=== PATIENT | male | born 1950 | race Caucasian/White ===

== ENCOUNTER → 2018-01-31 11:20 | Outpatient (CLI) | payer MEDICARE, OTHER, SELFPAY ==
[2018-01-31 12:40] LABS: Add Manual Diff / Slide Review NO; Basophils Percent Auto 0.6 % (0-2); Eosinophils Percent Auto 1.1 % (2-4); Hematocrit 38.4 % (41-53); Hemoglobin 13.5 g/dL (13.5-17.5); Lymphocytes Percent Auto 15.5 % (25-40); Mean Corpuscular HGB Conc 35.2 % (30-36); Mean Corpuscular Hemoglobin 32.8 PG (26-34); Mean Corpuscular Volume 93.3 fL (80-100); Monocytes Percent Auto 9.2 % (3-14); Neutrophils Absolute Auto 5100 /uL (3000-5900); Neutrophils Percent Auto 73.6 % (50-75); Platelet Count 208 X10^3/uL (150-400); Red Blood Cell Count 4.11 X10^6/uL (4.5-5.9); Red Cell Distribution Width 13.9 % (11.6-14.8)
[2018-01-31 13:06] LABS: BUN Creatinine Ratio 21.1 (6-22); Blood Urea Nitrogen 19 mg/dL (9-20); Calcium 9.2 mg/dL (8.4-10.2); Carbon Dioxide 28 mmol/L (22-32); Chloride 99 mmol/L (98-107); Estimated Glomerular Filt Rate > 60.0 mL/min (>60); Glucose 103 mg/dL (80-110); HEMOLYSIS < 15 (0-50); Potassium 4.6 mmol/L (3.4-5.1); Sodium 137 mmol/L (137-145)
== END ==
PROVIDERS: PCP Student in an Organized Health Care Education/Training Program; Visit Provider Orthopaedic Surgery Orthopaedic Surgery of the Spine
DX: Z01.812 Encounter for preprocedural laboratory examination (principal); Z01.818 Encounter for other preprocedural examination
CPT/HCPCS: 36415; 80048; 85025; 93005

== ENCOUNTER 2018-02-18 06:40 | Inpatient (IN) | payer MEDICARE, OTHER, SELFPAY ==
[2018-01-30 09:59] VITALS: BMI 24.3
[2018-02-18] VITALS (24 sets, daily range): BP systolic 78–155; BP diastolic 45–83; PULSE 54–90; RESP 6–20; TEMP 36.3–37.4; O2SAT 94–100; BMI 23.7
--- NOTE | 2018-02-18 | DI.RAD.S_ITS ---
PROCEDURE: XR LUMBAR SPINE 2-3V INDICATIONS: L5-S1, L3-4 TLIF TECHNIQUE: 2 views of the lumbar spine were acquired. COMPARISON: [facility], CAPRI, XR LUMBAR SPINE WITH OLBIQUES PLUS FLEXION EXTENSION, 11/22/2017, 7:42. FINDINGS: Bones: AP and lateral intraoperative images by comparison again show disc spacer at the L4-5 level with new spacers at L3-4 and L5-S1. Extension of posterior fixation with bilateral transpedicular screws and vertical fixation rods L3-S1. Soft tissues: Overlying bowel gas pattern is normal. No suspicious soft tissue calcifications. IMPRESSION: Intraoperative verification of postoperative changes L3-4 and L5-S1 posterior discectomy and internal fixation. Dictated by: Elie Temple M.D. on 02/18/2018 at 12:58 Approved by: Elie Temple M.D. on 02/18/2018 at 13:01
[2018-02-18] MEDS: LACTATED RINGERS 1,000 ML 42 ML IV ×2 (07:45→10:11)
[2018-02-18] MEDS: CEFAZOLIN 2 GM/100 ML FROZ.PIGGY IV ×2 (08:06→16:43)
--- NOTE | 2018-02-18 08:51 | SUR.OPER ---
Prone on spine table, head in foam head support, padded chest and pelvic supports, gel pad at knees, lower legs supported by pillows; nipples, genitalia and toes free of pressure, arms secured on foam padded arm boards at <90 degrees abduction. Tape over blanket at thigh secured to table.
[2018-02-18] MEDS: BUPIVACAINE 0.25% W/ EPI VIAL 50 ML INJ (09:18)
[2018-02-18] MEDS: BUPIVACAINE LIPOSOME 266 MG/20 ML VIAL INJ (11:24)
--- NOTE | 2018-02-18 12:34 | PM.OP.1 ---
Operative Date/Time/Diagnoses Date of procedure: 02/18/18 Time of procedure: 08:34 Pre-op diagnosis: 1. L4-5 hx of fusion with pseudoarthrosis 2. L3-4,L4-5, L5-S1 spinal stenosis 3. L3-4, L5-S1 spondylosis with radiculopathy Post-op diagnosis: same Procedure & Clinicians Procedure: 1. L3-4, L5-S1 posterolateral and posterior interbody fusion 2. L3-4, L5-S1 posterior interbody cage placement 3. L4-5 posterior non-segmental instrumentation removal 4. L4-5 revision laminectomy with exploration of fusion 5. L3-4, L4-5, L5-S1 posterior segmental instrumentation with pedicle screw placement 6. L4-5 posterolatearl fusion 7. [place] of bone marrow from iliac crest through a separate incision 8. Utilization of microsurgical technique and operating microscope Same procedure as scheduled: Yes Indications: Patient has been having chronic back pain and worsening lumbar radiculopathy. Patient had a history of lumbar fusion with progressively worsening back pain and leg pain. Patient's imaging showed pseudarthrosis at L4-5 level with L3-4 L5-S1 spinal stenosis along with L4-5 epidural scarring. Patient failed multiple conservative management with worsening pain weakness and numbness in her lower extremity. Patient has been having difficulty performing activity of daily living. After discussing risks benefits of treatment options, patient elected proceed with surgery. Surgeon: Zeny Gorman Enrollment Representative: Val Reagan Click Yes if Unassisted: No Anesthesia Type: General Operative Notes Closure Type: primary Specimen(s): none sent Implants & Drains: Globus Revolve screw, Rise cages Applied: catheter Estimated Blood Loss (mL): 200 Blood products transfused: none Procedure in detail: Patient was seen in the preoperative area. Risks and benefits of the surgery was discussed with the patient. Informed consent was obtained from the patient and placed in the chart. Surgical site was marked. Patient was taken to the operative room. General anesthesia was administered. Prophylactic antibiotic was given to the patient less than 30 min before the incision was made. Patient was placed into a prone position on the Yo table. Patient's back was then prepped and draped in the sterile fashion. Time-out was performed at this time. Using AP and lateral C-arm imaging, a right-sided incision was made over the L3-S1 interval. Fascia was incised in line with skin incision. Patient's previously placed hardware over the L4-5 level was identified by dissecting down to the level the hardware using a Bovie and a Fuller. The locking caps which was removed using globus screwdriver. The locking joanna was then removed from the [place] of the pedicle screws using a Chung. The pedicle screws were then removed using the screwdriver. The screws were found to have good purchase. The Globus and MARS retractors was then placed into the wound and docked onto the L3, L4 and L5 lamina using C-arm guidance. Using microsurgical technique and operating microscope a laminectomy facetectomy was performed by removing the L3 and L5 lamina and the L3-4 L5-S1 facet. The disc space at L3-4 and L5-S1 level was identified next. And a total diskectomy was performed at L3-4 L5-S1 level. The endplates were decorticated using a rasp and shaver. The total diskectomy and decortication was performed at L3-4 L5-S1 level in order to to accomplish a L3-4 L5-S1 posterior interbody fusion. During the L5-S1 laminectomy, a 2 mm dural defect was created using a Kerrison rongeur from the epidural adhesion from previous surgery. A Tisseel biological glue as well as DuraGen was placed on top of the dural defect. After the placement of DuraGen and the Tisseel there is no visible CSF leakage. Due to the location and also the small size of the dural tear no repair was performed. The local bone from the laminectomy and facetectomy was saved for local bone grafting. After the total diskectomy and decortication was completed, Globus viacell bone graft material was combined with local bone that was harvested earlier. At this time, a separate skin is incision was made over the iliac crest. A Jamshidi needle was inserted into the iliac crest through a separate skin incision. 5 cc of bone marrow aspiration was obtained through the separate skin incision using a Jamshidi needle from the iliac crest. The bone marrow aspiration was combined with local bone and the via cell bone grafting material. The bone grafting material was placed into the L3-4-L5-S1 interbody space along with a expandable cage. The cage was expanded to its maximum height using the torque limiting screwdriver. At this time a mirror image incision was made on the left side. The fascia was incised in line with the skin incision. Patient's previously placed hardware on the left side was then removed in the same fashion as it was on the right side. The hardware was also found to have good purchase. The fusion mass on the left side was exposed by performing a left-sided hemilaminectomy at L4-5 level. The hemilaminectomy was performed using the Kerrison rongeur to undercut the lamina as well removing additional epidural scar tissue for purpose of decompressing the epidural space. The fusion mass was explored and was found have visible motion indicating pseudoarthrosis. Globus MARS retractor was inserted and docked onto the L3-4 L4-5 L5-S1 posterolateral gutter. Using the power drill, posterior-lateral decortication was performed at L3-4 L4-5 L5-S1 level until bleeding cortical bone was identified. The remaining bone grafting material was placed into the L3-4 L4-5 L5-S1 posterior lateral gutter he order to accomplish posterolateral fusion at the L3-4-L4-5 L5-S1 level. Using the double C-arm technique, pedicle screws were placed into the L3, L4 L5 and S1 pedicles bilaterally. This was done by placing the Jamshidi needle into the pedicles, then placing the guidewires over the Jamshidi needle, and finally placing the cannulated screws over the guidewires bilaterally. After the pedicle screws were placed, 2 titanium rods was locked into the heads of the pedicle screws using locking caps and torque limiting screwdriver. After all the hardware was placed, and confirmed with AP and lateral C-arm imaging, the wound was then irrigated with sterile normal saline and packed with Ray-Familia gauze for 3 min to accomplish hemostasis. After the gauze was removed the deep fascia was closed with #1 Vicryl suture. The subcutaneous layer was closed with 2-0 Vicryl. The skin was closed with skin tana. Patient tolerated the procedure well. There were no complications. Complications: none Condition: stable Disposition: PACU Plan for aftercare: Admit to inpatient hospital
--- NOTE | 2018-02-18 12:38 | P.OP_ITS ---
Operative Date/Time/Diagnoses Date of procedure: 02/18/18 Time of procedure: 08:34 Pre-op diagnosis: 1. L4-5 hx of fusion with pseudoarthrosis 2. L3-4,L4-5, L5-S1 spinal stenosis 3. L3-4, L5-S1 spondylosis with radiculopathy Post-op diagnosis: same Procedure & Clinicians Procedure: 1. L3-4, L5-S1 posterolateral and posterior interbody fusion 2. L3-4, L5-S1 posterior interbody cage placement 3. L4-5 posterior non-segmental instrumentation removal 4. L4-5 revision laminectomy with exploration of fusion 5. L3-4, L4-5, L5-S1 posterior segmental instrumentation with pedicle screw placement 6. L4-5 posterolatearl fusion 7. [place] of bone marrow from iliac crest through a separate incision 8. Utilization of microsurgical technique and operating microscope Same procedure as scheduled: Yes Indications: Patient has been having chronic back pain and worsening lumbar radiculopathy. Patient had a history of lumbar fusion with progressively worsening back pain and leg pain. Patient's imaging showed pseudarthrosis at L4-5 level with L3-4 L5 -S1 spinal stenosis along with L4-5 epidural scarring. Patient failed multiple conservative management with worsening pain weakness and numbness in her lower extremity. Patient has been having difficulty performing activity of daily living. After discussing risks benefits of treatment options, patient elected proceed with surgery. Surgeon: Zeny Gorman Compliance Lead: Val Reagan Click Yes if Unassisted: No Anesthesia Type: General Operative Notes Closure Type: primary Specimen(s): none sent Implants & Drains: Globus Revolve screw, Rise cages Applied: catheter Estimated Blood Loss (mL): 200 Blood products transfused: none Procedure in detail: Patient was seen in the preoperative area. Risks and benefits of the surgery was discussed with the patient. Informed consent was obtained from the patient and placed in the chart. Surgical site was marked. Patient was taken to the operative room. General anesthesia was administered. Prophylactic antibiotic was given to the patient less than 30 min before the incision was made. Patient was placed into a prone position on the Yo table. Patient's back was then prepped and draped in the sterile fashion. Time- out was performed at this time. Using AP and lateral C-arm imaging, a right-sided incision was made over the L3- S1 interval. Fascia was incised in line with skin incision. Patient's previously placed hardware over the L4-5 level was identified by dissecting down to the level the hardware using a Bovie and a Fuller. The locking caps which was removed using globus screwdriver. The locking joanna was then removed from the [place] of the pedicle screws using a Chung. The pedicle screws were then removed using the screwdriver. The screws were found to have good purchase. The Globus and MARS retractors was then placed into the wound and docked onto the L3, L4 and L5 lamina using C-arm guidance. Using microsurgical technique and operating microscope a laminectomy facetectomy was performed by removing the L3 and L5 lamina and the L3-4 L5-S1 facet. The disc space at L3-4 and L5- S1 level was identified next. And a total diskectomy was performed at L3-4 L5- S1 level. The endplates were decorticated using a rasp and shaver. The total diskectomy and decortication was performed at L3-4 L5-S1 level in order to to accomplish a L3-4 L5-S1 posterior interbody fusion. During the L5-S1 laminectomy, a 2 mm dural defect was created using a Kerrison rongeur from the epidural adhesion from previous surgery. A Tisseel biological glue as well as DuraGen was placed on top of the dural defect. After the placement of DuraGen and the Tisseel there is no visible CSF leakage. Due to the location and also the small size of the dural tear no repair was performed. The local bone from the laminectomy and facetectomy was saved for local bone grafting. After the total diskectomy and decortication was completed, Globus viacell bone graft material was combined with local bone that was harvested earlier. At this time , a separate skin is incision was made over the iliac crest. A Jamshidi needle was inserted into the iliac crest through a separate skin incision. 5 cc of bone marrow aspiration was obtained through the separate skin incision using a Jamshidi needle from the iliac crest. The bone marrow aspiration was combined with local bone and the via cell bone grafting material. The bone grafting material was placed into the L3-4-L5-S1 interbody space along with a expandable cage. The cage was expanded to its maximum height using the torque limiting screwdriver. At this time a mirror image incision was made on the left side. The fascia was incised in line with the skin incision. Patient's previously placed hardware on the left side was then removed in the same fashion as it was on the right side. The hardware was also found to have good purchase. The fusion mass on the left side was exposed by performing a left-sided hemilaminectomy at L4-5 level. The hemilaminectomy was performed using the Kerrison rongeur to undercut the lamina as well removing additional epidural scar tissue for purpose of decompressing the epidural space. The fusion mass was explored and was found have visible motion indicating pseudoarthrosis. Globus MARS retractor was inserted and docked onto the L3-4 L4-5 L5-S1 posterolateral gutter. Using the power drill, posterior-lateral decortication was performed at L3-4 L4-5 L5-S1 level until bleeding cortical bone was identified. The remaining bone grafting material was placed into the L3-4 L4-5 L5-S1 posterior lateral gutter he order to accomplish posterolateral fusion at the L3-4-L4-5 L5-S1 level. Using the double C-arm technique, pedicle screws were placed into the L3, L4 L5 and S1 pedicles bilaterally. This was done by placing the Jamshidi needle into the pedicles, then placing the guidewires over the Jamshidi needle, and finally placing the cannulated screws over the guidewires bilaterally. After the pedicle screws were placed, 2 titanium rods was locked into the heads of the pedicle screws using locking caps and torque limiting screwdriver. After all the hardware was placed, and confirmed with AP and lateral C-arm imaging, the wound was then irrigated with sterile normal saline and packed with Ray-Familia gauze for 3 min to accomplish hemostasis. After the gauze was removed the deep fascia was closed with #1 Vicryl suture. The subcutaneous layer was closed with 2-0 Vicryl. The skin was closed with skin tana. Patient tolerated the procedure well. There were no complications. Complications: none Condition: stable Disposition: PACU Plan for aftercare: Admit to inpatient hospital
[2018-02-18] MEDS: HYDROMORPHONE 2 MG INJ 0.5 MG IV ×4 (12:56→13:13)
[2018-02-18] MEDS: LORazepam 2 MG/ML SYRINGE 0.25 MG IV ×2 (13:07→13:18)
--- NOTE | 2018-02-18 15:01 | SUR.PHASEI ---
late entry: pt arrived to pacu with oral airway and needing chin support to breath, bp low, iv opened and infusing well, HOB lowered, bp gradually came up , pt awoke, airway out, iv rate slowed 02 weaned off. pt medicated with dilaudid and lorazepam, pain started at 10/10 and was at 4/10 when left the pacu. report to teagan kim.
[2018-02-18] MEDS: KETOROLAC 0.5% OPHTH DROPS 5 ML 1 DROPS EYE-BOTH (15:02)
[2018-02-18] MEDS: SODIUM CHLORIDE 0.9% 1,000 ML 100 ML IV (15:02)
[2018-02-18] MEDS: prednisoLONE OPHTH SUSP 1 DROPS EYE-BOTH (15:03)
[2018-02-18] MEDS: OXYCODONE IR 5 MG TABLET 10 MG PO ×2 (15:04→18:33)
[2018-02-18] MEDS: HYDROMORPHONE 1 MG INJ 0.5 MG IV (15:05)
[2018-02-18] MEDS: ACETAMINOPHEN 325 MG TABLET 650 MG PO (15:05)
--- NOTE | 2018-02-18 15:49 | PC.NURSE ---
Post-op: Late entry Arrived awake and alert at 1350. Logrolled to observe dressing which was C/D/I. Denies any new paresthesias. Reported old numbness/tingling in all extremities, neuropathy to BLE's and foot drop in L foot. On 2L O2 with sats in the mid 90's. Rated back pain 7/10. Medicated per e-sep. Tolerating PO's without N/V. Patient's family reported to this quality analyst/technical writer, when they arrived to visit patient, that Dr Gorman had told them there was a dural tear and that patient was to lay flat. So, we laid patient flat and I called back down to surgery since I had not received that info in report. HEAD OF VISUAL MERCHANDISING Daniel called into surgery and called back to say patient should lay flat until 7 pm tonight. Patient denies headache. [place] to gravity, urine clear yellow. IVF per order, site in L hand WNL. Oriented to room and call light. Given water and snacks. Encouraged to make needs known. Alarm active.
[2018-02-18] MEDS: hydrOXYzine pamoate 25 MG CAPSULE PO ×2 (16:43→20:54)
[2018-02-18] MEDS: HYDROMORPHONE 0.5 MG INJ IV ×3 (17:20→22:00)
[2018-02-18] MEDS: SENNOSIDES 8.6 MG TABLET 17.2 MG PO (20:43)
[2018-02-18] MEDS: DOCUSATE 100 MG CAPSULE PO (20:45)
[2018-02-18] MEDS: TRAZODONE 50 MG TABLET PO (20:45)
--- NOTE | 2018-02-18 21:20 | PC.NURSE ---
shift note met with pt at start of shift. aox3. pleasant, cooperative. complains of pain 8/10 difficulty managing pain. MD called, additional PRN pain meds ordered. Currently pt rates pain 6/10. call light within reach.
[2018-02-18] MEDS: OXYCODONE IR 5 MG TABLET 15 MG PO (21:57)
[2018-02-19] VITALS (8 sets, daily range): BP systolic 106–145; BP diastolic 60–87; PULSE 65–78; RESP 16–19; TEMP 36.7–37.8; O2SAT 94–98
[2018-02-19] MEDS: CEFAZOLIN 2 GM/100 ML FROZ.PIGGY IV (00:14)
[2018-02-19] MEDS: HYDROMORPHONE 0.5 MG INJ IV ×4 (00:17→22:31)
[2018-02-19] MEDS: SODIUM CHLORIDE 0.9% 1,000 ML 100 ML IV (00:25)
--- NOTE | 2018-02-19 00:41 | PC.NURSE ---
Addendum entered by Zahra Cornell R.N. 02/19/18 05:27: Slept for few hours and then at 0410 requested pain medication for complaint of 6/10 pain. Shortly after stated he needed additional pain medication so discussed that po pain medication takes at least 30 minutes to start taking effect. Applied heat to back and instructed to call if pain not improved. When checked at 0500 patient was sleeping. Now again asking for additional pain meds; requested/medicated with Vistaril but knows Dilaudid is also available should Vistaril be ineffective. Original Note: Addendum entered by Zahra Cornell R.N. 02/19/18 02:36: Having spasms in right calf relieved by warm blankets, but now states pain is still 7/10; medicated with Dilaudid, repositioned onto left side and ice pack applied. Has footie SCD's in place. Tried off oxygen per patient request but oximeter alarming and patient down to 85% so placed back on oxygen at 1L/min per NC Original Note: Addendum entered by Zahra Cornell R.N. 02/19/18 01:12: Medicated with Oxycodone + Vistaril for continued 8/10 pain. Original Note: Patient is alert and oriented. Breath sounds coarse but CTA with sat of 99% on 1L/min oxygen per NC; O2 removed and will reassess; continuous pulse oximeter on. HRR. Denies nausea. BT present and is passing flatus. Indwelling catheter is present with urine clear yellow. Having 8/10 back/right hip-leg pain and 4/10 left leg pain; medicated with Dilaudid but declines offer of ice pack. Is able to turn self but preferring to lie on back. Dressing to back is CDI. Has scabbed abrasions on right hand and lower leg. Chronic bilateral foot neuropathy. Flat in bed until 0700 due to dural tear. Fall risk score is high and bed alarm is activated.
[2018-02-19] MEDS: OXYCODONE IR 5 MG TABLET 15 MG PO ×7 (01:11→21:36)
[2018-02-19] MEDS: hydrOXYzine pamoate 25 MG CAPSULE PO ×4 (01:11→18:41)
[2018-02-19 06:59] LABS: Hematocrit 33.7 % (41-53); Hemoglobin 11.4 g/dL (13.5-17.5)
[2018-02-19] MEDS: DEXAMETHASONE 10 MG/ML VIAL IV (09:17)
[2018-02-19] MEDS: DOCUSATE 100 MG CAPSULE PO ×2 (09:17→18:06)
[2018-02-19] MEDS: ATENOLOL 50 MG TABLET PO (09:17)
[2018-02-19] MEDS: GABAPENTIN 300 MG CAPSULE PO (09:17)
[2018-02-19] MEDS: prednisoLONE OPHTH SUSP 1 DROPS EYE-BOTH (09:18)
[2018-02-19] MEDS: KETOROLAC 0.5% OPHTH DROPS 5 ML 1 DROPS EYE-BOTH (09:18)
--- NOTE | 2018-02-19 11:00 | PT.IIE ---
Current Diagnoses Foot drop, right foot (02/18/18) Other spondylosis with radiculopathy, lumbar region (02/18/18) Spinal stenosis, lumbar region without neurogenic claudication (02/18/18) Arthrodesis status (02/18/18) Surgery Performed Operation Date: 02/18/18 07:45 Actual Procedures p L4-5 HWR, Exploration of Fusion, L3-4, L5-S1 TLIF w/L3-4,L4-5,L5-S1 PSF w/Instru. - Zeny Gorman MD Surgical History (Last Updated 01/30/18 @ 10:22 by Hazel Somers RN) History of ankle surgery (Acute) History of ankle surgery (Acute) History of bilateral cataract extraction (Acute) History of lumbar spinal fusion (Acute) History of meniscectomy of left knee (Acute) History of vasectomy (Acute) S/P left rotator cuff repair (Acute) Medical History (Last Updated 01/30/18 @ 10:22 by Hazel Somers RN) HTN (hypertension) (Acute) Hx of migraines (Acute) Irregular heart beats (Acute) Kidney stone (Acute) Melanoma in situ of cheek (Acute) Numbness (Acute) Pre-diabetes (Acute) Physical Therapy Inpatient Evaluation/Re-Eval M1 PT/OT-IP Prior Functional Status Start: 02/19/18 12:23 Freq: NEEDED Status: Active Protocol: Document 02/19/18 11:00 AB (Rec: 02/19/18 12:40 AB [id number]) Medical Review Prior Functional Status Medical History Reviewed Yes Communication able to make needs known Mobility and Gait pt stated that he is independent with all mobilities and ambulation without AD Prior Functional Level (Other details) 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 2 steps with L rail ascending + 8 ft sloped walk wasy + 4 steps with bilateral rails to enter the house; has 8 steps with L rail ascending to get to 2nd floor; pt plans to stay on main level of the house. Home Environment Standard Height Toilet Walk in Shower Tub/Shower Home Equipment Four Wheel Walker Straight Cane Grab Bars Near Toilet Additional Social History Comment pt has a tub shower on main level of the house without shower chair, with grab bar; stated spouse can get him a shower chair; has a walk in shower with built in shower hair without grab bars in 2nd level of the house. has a high bed on 2nd level of the house M2 PT-IP Current Condition Start: 02/19/18 12:23 Freq: NEEDED Status: Active Protocol: Document 02/19/18 11:00 AB (Rec: 02/19/18 12:40 AB [id number]) Physical Therapy Current Condition Current Condition Evaluation Date 02/19/18 Treatment Diagnosis s/p L3-4, L5 S1 TLIF; difficulty in walking Onset Date 02/18/18 Precautions Lumbar Precautions Log Roll No Twisting Limit Bending Lifting Restriction of 10 lbs Gait Belt above Incisional Area Brace L AFO M3 PT-IP Subjective Start: 02/19/18 12:23 Freq: NEEDED Status: Active Protocol: Document 02/19/18 11:00 AB (Rec: 02/19/18 12:40 AB [id number]) Subjective Physical Therapy Visit Type Type Initial Evaluation Visit Start Time 11:00 Visit Stop Time 11:44 Total Visit Minutes 44 Notes PA order: pt bed rest until 7 am of 02/19/18 then 2 hours at 30 deg with HOB elevated and another 2 hours with HOB at 45 deg. spoke with nurse and initially stated to check back at around 1 pm today. after a few minutes, nurse informed PT that pt is cleared to get up and out of bed with PT per Dr. Espinoza. Number of PHOTOVOLTAIC SOLAR CELL DESIGNER Visits 0 Physical Therapy Visit Comments Patient Comments pt agreeable to do therapy Therapy Pain Assessment Pain When Pain Assessed At Rest Pain Present Pain Present Pain Reported Location Back Intensity 5 Scale Used Numeric (1 - 10) Pain Management Techniques Apply Cold Re-positioning Timing of Activity with Medications M4 PT-IP Mobility and Gait Start: 02/19/18 12:23 Freq: NEEDED Status: Active Protocol: Document 02/19/18 11:00 AB (Rec: 02/19/18 12:40 AB [id number]) PT-Bed Mobility Assessment Rolling Type of Rolling Log Rolling Level of Assist Minimal Assistance Supine to Sit Supine to Sit Minimal Assistance 1 Person Assistance PT-Transfer Assessment Sit to and From Stand Sit to and from Stand Moderate Assistance 1 Person Assistance Use of Upper Extremities Equipment Transfer Assistive Device Gait Belt Front Wheeled Walker Orthotic/Prosthetic Devices or Brace: Yes Transfers Transfer Destination Chair Transfer Technique pt ambulated to the the chair using FWW Transfer Ability Level of Assist Minimal Assistance Moderate Assistance 1 Person Assistance Use of Upper Extremities Gait Assessment Gait Gait Assistance Required: Minimum Assistance Distance (Feet) (feet) 30 Able to Maintain Weight Bearing Status Yes During Gait Assistive Devices Assistive Device Gait Belt Front Wheeled Walker Orthotic/Prosthetic Devices or Brace: Yes Gait Deviations General Gait Pattern Decreased Stride Length Decreased Feet Clearance Factors Limiting Gait Function Factors Limiting Gait Function Decreased Activity Tolerance Decreased Sensation Decreased Strength Limited Range of Motion Pain Poor Balance Poor Safety Awareness PT-Balance Assessment Sitting Balance and Reactions Static Sitting Balance Ability Good Dynamic Sitting Balance Ability Good Standing Balance and Reactions Static Standing Balance Ability Fair Dynamic Standing Balance Ability Fair M5 PT-IP Objective Assessments Start: 02/19/18 12:23 Freq: NEEDED Status: Active Protocol: Document 02/19/18 11:00 AB (Rec: 02/19/18 12:40 AB [id number]) Orientation Orientation/Cognition Level of Alertness Alert Orientation Name Age Birthday Month Date Year Day of Week Place Situation Gross Range of Motion Lower Extremity ROM Assessment Within Functional Limits Strength Lower Extremity Strength Assessment Bilaterally Impaired Hip 4-/5 Knee 3+/5 Comments Strength Comments RLE weaker than LLE Sensation Assessment Sensation Gross Sensation Right LE Impaired Left LE Impaired Sensation Description Numbness Comments Sensation Comments B feet numbness M6 PT-IP Treatment Start: 02/19/18 12:23 Freq: NEEDED Status: Active Protocol: Document 02/19/18 11:00 AB (Rec: 02/19/18 12:40 AB [id number]) Physical Therapy Treatment Education Education Provided Precautions Post-Op Packet Safety M7 PT-IP Assessment and Plan Start: 02/19/18 12:23 Freq: NEEDED Status: Active Protocol: Document 02/19/18 11:00 AB (Rec: 02/19/18 12:40 AB [id number]) PT Summary Assessment and Plan Potential Rehabilitation Potential Good Status of Condition at Evaluation Evolving Summary Impairments Pain ROM Strength Balance Coordination Sensation Bed Mobility Transfers Gait Activity Tolerance Assessment Summary pt requiring one person assist with mobility. d/c plan depending on progress and if spouse will be able to assist pt safely. Goals Bed Mobility Goal Standby Assistance Transfer Goal Standby Assistance Front Wheeled Walker Four Wheeled Walker Gait Goal Standby Assistance Front Wheel Walker Four Wheel Walker Gait Distance 150 Other Goals up/down 8 steps with L rail ascending; 4 steps with bilateral rails SBA Days to Meet Goals 3 Frequency of Treatment Frequency Of Treatment Twice a Day Treatment Plan Physical Therapy Treatment Plan Bed Mobility Training Transfer Training Gait Training Therapeutic Exercise Balance Retraining Post Op Education Discharge Planning Hot or Cold Pack Neuromuscular Re-ed Coordination Retraining Manual Therapy Recommendations To Nursing Amount of Assist Needed 1 Person Assist Discharge Recommendations PT Discharge Recommendations Home with Assistance Equipment Needed for Home Before FWW if not safe with 4WW Discharge
[2018-02-19] MEDS: DEXAMETHASONE 4 MG TABLET PO ×2 (12:32→18:06)
--- NOTE | 2018-02-19 12:45 | PT.IPTN ---
Current Diagnoses Foot drop, right foot (02/18/18) Other spondylosis with radiculopathy, lumbar region (02/18/18) Spinal stenosis, lumbar region without neurogenic claudication (02/18/18) Arthrodesis status (02/18/18) Surgery Performed Operation Date: 02/18/18 07:45 Actual Procedures p L4-5 HWR, Exploration of Fusion, L3-4, L5-S1 TLIF w/L3-4,L4-5,L5-S1 PSF w/Instru. - Zeny Gorman MD Physical Therapy Treatment Note M2 PT-IP Current Condition Start: 02/19/18 12:23 Freq: NEEDED Status: Active Protocol: Document 02/19/18 11:00 AB (Rec: 02/19/18 12:40 AB [id number]) Physical Therapy Current Condition Current Condition Evaluation Date 02/19/18 Treatment Diagnosis s/p L3-4, L5 S1 TLIF; difficulty in walking Onset Date 02/18/18 Precautions Lumbar Precautions Log Roll No Twisting Limit Bending Lifting Restriction of 10 lbs Gait Belt above Incisional Area Brace L AFO M3 PT-IP Subjective Start: 02/19/18 12:23 Freq: NEEDED Status: Active Protocol: Document 02/19/18 12:45 AB (Rec: 02/19/18 15:04 AB [id number]) Subjective Physical Therapy Visit Type Type Treatment Note Visit Start Time 12:45 Visit Stop Time 13:03 Total Visit Minutes 18 Number of PRODUCTION SERVICE MANAGER Visits 0 Physical Therapy Visit Comments Patient Comments pt requested to go back to bed but agreeable to do ambulation first Therapy Pain Assessment Pain When Pain Assessed At Rest Pain Present Pain Present Pain Reported Location Back Intensity 4 Scale Used Numeric (1 - 10) Pain Management Techniques Apply Cold Re-positioning M4 PT-IP Mobility and Gait Start: 02/19/18 12:23 Freq: NEEDED Status: Active Protocol: Document 02/19/18 12:45 AB (Rec: 02/19/18 15:04 AB [id number]) PT-Bed Mobility Assessment Rolling Type of Rolling Log Rolling Level of Assist Contact Guard Assistance Sit to Supine Sit to Supine Minimal Assistance PT-Transfer Assessment Sit to and From Stand Sit to and from Stand Contact Guard Assistance Minimal Assistance 1 Person Assistance Use of Upper Extremities Equipment Transfer Assistive Device Gait Belt Front Wheeled Walker Orthotic/Prosthetic Devices or Brace: Yes Transfers Transfer Destination Bed Transfer Technique pt ambulated to the bed using FWW Transfer Ability Level of Assist Contact Guard Assistance Minimal Assistance Comments Mobility Comments pt completed sit <>stand x 3 and CGA to min A and cues for techniques and safety Gait Assessment Gait Gait Assistance Required: Contact Guard Assist Minimum Assistance Distance (Feet) (feet) 50 Able to Maintain Weight Bearing Status Yes During Gait Assistive Devices Assistive Device Gait Belt Front Wheeled Walker Orthotic/Prosthetic Devices or Brace: Yes Gait Deviations General Gait Pattern Decreased Stride Length Decreased Feet Clearance Factors Limiting Gait Function Factors Limiting Gait Function Decreased Activity Tolerance Decreased Sensation Decreased Strength Pain Poor Balance M5 PT-IP Objective Assessments Start: 02/19/18 12:23 Freq: NEEDED Status: Active Protocol: Document 02/19/18 11:00 AB (Rec: 02/19/18 12:40 AB [id number]) Orientation Orientation/Cognition Level of Alertness Alert Orientation Name Age Birthday Month Date Year Day of Week Place Situation Gross Range of Motion Lower Extremity ROM Assessment Within Functional Limits Strength Lower Extremity Strength Assessment Bilaterally Impaired Hip 4-/5 Knee 3+/5 Comments Strength Comments RLE weaker than LLE Sensation Assessment Sensation Gross Sensation Right LE Impaired Left LE Impaired Sensation Description Numbness Comments Sensation Comments B feet numbness M6 PT-IP Treatment Start: 02/19/18 12:23 Freq: NEEDED Status: Active Protocol: Document 02/19/18 12:45 AB (Rec: 02/19/18 15:04 AB [id number]) Physical Therapy Treatment Education Education Provided Precautions Safety M7 PT-IP Assessment and Plan Start: 02/19/18 12:23 Freq: NEEDED Status: Active Protocol: Document 02/19/18 12:45 AB (Rec: 02/19/18 15:04 AB [id number]) PT Summary Assessment and Plan Potential Rehabilitation Potential Good Summary Impairments Pain ROM Strength Balance Sensation Bed Mobility Transfers Gait Activity Tolerance Progress Towards Goals Slow Progress due to Pain Slow Progress due to Activity Tolerance Assessment Summary pt requiring one person assist with mobility. pt plans to go home with spouse to assist him. caregiver training will be conducted when appropriate. Goals Bed Mobility Goal Standby Assistance Transfer Goal Standby Assistance Front Wheeled Walker Four Wheeled Walker Gait Goal Standby Assistance Front Wheel Walker Four Wheel Walker Gait Distance 150 Other Goals up/down 8 steps with L rail ascending; 4 steps with bilateral rails SBA Days to Meet Goals 3 Frequency of Treatment Frequency Of Treatment Twice a Day Treatment Plan Physical Therapy Treatment Plan Bed Mobility Training Transfer Training Gait Training Therapeutic Exercise Balance Retraining Post Op Education Discharge Planning Hot or Cold Pack Neuromuscular Re-ed Coordination Retraining Manual Therapy Recommendations To Nursing Amount of Assist Needed 1 Person Assist Discharge Recommendations PT Discharge Recommendations Home with Assistance Equipment Needed for Home Before FWW if not safe with 4WW Discharge
--- NOTE | 2018-02-19 12:48 | OT.IP.EVAL ---
Current Diagnoses Foot drop, right foot (02/18/18) Other spondylosis with radiculopathy, lumbar region (02/18/18) Spinal stenosis, lumbar region without neurogenic claudication (02/18/18) Arthrodesis status (02/18/18) Surgery Performed Operation Date: 02/18/18 07:45 Actual Procedures p L4-5 HWR, Exploration of Fusion, L3-4, L5-S1 TLIF w/L3-4,L4-5,L5-S1 PSF w/Instru. - Zeny Gorman MD Past Medical History (Last Updated 01/30/18 @ 10:22 by Hazel Somers RN) HTN (hypertension) (Acute) Hx of migraines (Acute) Irregular heart beats (Acute) Kidney stone (Acute) Melanoma in situ of cheek (Acute) Numbness (Acute) Pre-diabetes (Acute) Surgical History (Last Updated 01/30/18 @ 10:22 by Hazel Somers RN) History of ankle surgery (Acute) History of ankle surgery (Acute) History of bilateral cataract extraction (Acute) History of lumbar spinal fusion (Acute) History of meniscectomy of left knee (Acute) History of vasectomy (Acute) S/P left rotator cuff repair (Acute) Occupational Therapy Inpatient Evaluation/Re-Eval M1 PT/OT-IP Prior Functional Status Start: 02/19/18 12:23 Freq: NEEDED Status: Active Protocol: Document 02/19/18 11:00 AB (Rec: 02/19/18 12:40 AB [id number]) Medical Review Prior Functional Status Medical History Reviewed Yes Communication able to make needs known Mobility and Gait pt stated that he is independent with all mobilities and ambulation without AD Prior Functional Level (Other details) 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 2 steps with L rail ascending + 8 ft sloped walk wasy + 4 steps with bilateral rails to enter the house; has 8 steps with L rail ascending to get to 2nd floor; pt plans to stay on main level of the house. Home Environment Standard Height Toilet Walk in Shower Tub/Shower Home Equipment Four Wheel Walker Straight Cane Grab Bars Near Toilet Additional Social History Comment pt has a tub shower on main level of the house without shower chair, with grab bar; stated spouse can get him a shower chair; has a walk in shower with built in shower hair without grab bars in 2nd level of the house. has a high bed on 2nd level of the house M1 PT/OT-IP Prior Functional Status Start: 02/19/18 12:29 Freq: NEEDED Status: Active Protocol: Document 02/19/18 12:29 [facility] (Rec: 02/19/18 12:48 [facility] [id number]) Medical Review Prior Functional Status Medical History Reviewed Yes Communication Independent. Mobility and Gait Per pt needed to wear left foot brace on his shoe otherwise does not use a device. Activities of Daily Living and IADL's Independent. Social History Household Members spouse Living Arrangements House Number of Floors (Floors) Two Floors Number of Stairs To Enter/Railing? 2 steps with left rail and then landing and then another 4 steps with bilateral rails. Home Environment Standard Height Toilet Walk in Shower Tub/Shower Built-In Shower Seat Home Equipment Four Wheel Walker Straight Cane Grab Bars Near Toilet Employment Status Wharf Hand Employed Additional Social History Comment Pt's to be home to assist . M2 OT-IP Current Condition Start: 02/19/18 12:29 Freq: Status: Active Protocol: Document 02/19/18 12:29 [facility] (Rec: 02/19/18 12:48 [facility] [id number]) Occupational Therapy Current Condition Current Condition Evaluation Date 02/19/18 Treatment Diagnosis Lumbar stenosis Diagnosis Onset Date 02/18/18 Post Operative Precautions Lumbar Precautions Log Roll No Twisting Limit Bending Lifting Restriction of 10 lbs Gait Belt above Incisional Area Weight Bearing Status Weight Bearing Status Weight Bear as Tolerated M3 OT- IP Subjective and Pain Start: 02/19/18 12:29 Freq: Status: Active Protocol: Document 02/19/18 12:29 [facility] (Rec: 02/19/18 12:48 [facility] [id number]) OT- Subjective Occupational Therapy Visit Type Type Initial Evaluation Visit Start Time 11:20 Visit Stop Time 11:50 Occupational Therapy Visit Comments Patient/Caregiver Goals Pt states if needed would hire help at home, otherwise to assist at home. OT Pain Assessment Pain When Pain Assessed At Rest Pain Present Pain Present Pain Reported Location Back Intensity 7 Scale Used Numeric (1 - 10) M4 OT- IP ADL's Start: 02/19/18 12:29 Freq: Status: Active Protocol: Document 02/19/18 12:29 [facility] (Rec: 02/19/18 12:48 [facility] [id number]) OT ADL-Grooming General Evaluation Grooming Ability Standby Assistance Comments OT Grooming Comments Set-up while in bed. OT ADL-Dressing General Eval Lower Body Dressing Ability Maximum Assistance Areas Needing Assistance Socks Shoes Orthosis/Prosthesis Comments OT Dressing Comments Educated pt on use of shank taper and socks aid for LB dressing needs. Pt's to be able to assist for shoes and foot brace. OT ADL-Toileting Comments OT Toileting Comments Pt has catheter in. M6 OT- IP Functional Cognition Start: 02/19/18 12:29 Freq: Status: Active Protocol: Document 02/19/18 12:29 [facility] (Rec: 02/19/18 12:48 [facility] [id number]) Cognitive Factors Limiting Selfcare Function Cognitive Ability Level of Alertness Alert Patient Orientation Name Place Situation Attention Span Ability Capable of Focused Attention Capable of Sustained Attention Ability to Follow Commands Able to Follow Multi-Step Commands Memory Description Short Term Impaired Safety Awareness Decreased Recall of Precautions Cognitive Comments Cognitive Assessment Comments Pt needing reminders for back precautions at this time. OT- Vision and Hearing OT- Hearing Assessment OT- Hearing Assessment WFL M7 OT- IP Mobility and Balance Start: 02/19/18 12:29 Freq: Status: Active Protocol: Document 02/19/18 12:29 [facility] (Rec: 02/19/18 12:48 [facility] [id number]) OT- Bed Mobility Assessment Rolling Type of Rolling Log Rolling Supine to Sit Supine to Sit Assist Minimal Assistance OT-Transfer Assessment Sit to and From Stand Sit to and from Stand Moderate Assistance Transfers Transfer Ability Minimal Assistance Technique Transfer Destination Chair Devices Transfer Assistive Devices Gait Belt Front Wheeled Walker Orthotic/Prosthetic Devices or Brace: Yes Comments Mobility Comments Heavy use of BUE on the FWW while walking. OT- Balance Assessment Sitting Balance and Reactions Static Sitting Balance Ability Normal Dynamic Sitting Balance Ability Good M8 OT- IP Objective Assessments Start: 02/19/18 12:29 Freq: Status: Active Protocol: Document 02/19/18 12:29 [facility] (Rec: 02/19/18 12:48 [facility] [id number]) OT Gross Range of Motion Upper Extremity Range of Motion Assessment Within Functional Limits OT Strength Upper Extremity Strength Assessment Within Functional Limits Hand Security Alarm Technician Strength Hand Dominance Right Comments Strength Comments Right manager career stronger than left M9 OT- IP Assessment and Plan Start: 02/19/18 12:29 Freq: Status: Active Protocol: Document 02/19/18 12:29 [facility] (Rec: 02/19/18 12:48 [facility] [id number]) OT Summary Assessment and Plan Potential Rehabilitation Potential Excellent Analytic Complexity at Evaluation Low Summary OT Impairments Pain Balance Functional Cognition Functional Mobility Dressing Toileting Bathing Toilet Transfers Shower Transfers Progress Towards Goals Slow Progress due to Pain Slow Progress due to Cognition Assessment Summary Pt Low complexity and main barrier is pain, steps at home , and now needing extensive assist for LB dressing at this time. Pt to go home when medically stable and to assist. Goals Grooming Goal Independent Dressing Goal Minimal Assistance Toileting Goal Independent Bathing Goal Minimal Assistance Toilet Transfer Goal Standby Assistance Shower Transfer Goal Contact Guard Assistance Patient/Caregiver Education Goal Demonstrate Post-Op Precautions Caregiver Independent Assisting Patient Days to Meet Goals 3 Frequency of Treatment Frequency Of Treatment Once a Day Treatment Plan OT Treatment Plan ADL Training Functional Cognition Training Functional Mobility Patient/Family Education Discharge Planning Discharge Recommendations OT Discharge Recommendations Home with Assistance Home Equipment Needs Shower chair, FWW
--- NOTE | 2018-02-19 13:46 | CM.DANOTE ---
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 Yes Advance Directives on File No History Provided By Patient Family Member Medical Record Has Patient been admitted in last 30 No days? Prior Living Arrangements House Household Members spouse Type of transporation used prior to Drives own vehicle admit Independent with ADL's Yes Is patient alert and oriented? Yes Patient/Family Preference OP PT Therapy Discharge Plan Home Whiteboard Updated in Patient Room with Yes name and ext. # of Wire Mesh Filter Fabricator Review Status In Process Next Review Type Continued Stay Review Met with patient and spouse: notified family of CM team role and family understood. Family reports patient being independent at baseline and working part-time. Spouse will provide transportation home. No concerns or needs. Plan: Patient to discharge home with supportive family and OP PT.
[2018-02-19] MEDS: KETOROLAC 0.5% 1 EACH EYE-BOTH ×2 (15:22→21:24)
[2018-02-19] MEDS: PREDNISOLONE 1% 1 EACH EYE-BOTH ×2 (15:22→21:24)
--- NOTE | 2018-02-19 15:28 | P.PN_ITS ---
Subjective Date Patient Seen: 02/19/18 Time Patient Seen: 07:19 Interval history: POD #1 status post lumbar fusion with Dr. Gorman. Patient had a dura tear during surgery, and the head of his bed has been flat since surgery. He does not complain of any headaches now that his head is at 30?. His pain has been well controlled. He does complain of pain down right buttocks. He has not been up and ambulating with physical therapy yet. He has a Novak in place. He plans to discharge home with his family. Exam Vital Signs (past 8 hours): - 02/19/18 08:54 02/19/18 10:38 02/19/18 13:37 Temperature 98.5 F 98.2 F Pulse Rate 76 65 Respiratory Rate 18 16 Blood Pressure 145/87 H 106/60 Pulse Oximetry 98 94 96 Oxygen Delivery Method Room Air Oxygen Flow Rate 0.5 Narrative Exam Narrative: Patient lying in bed in no acute distress. He is alert and oriented x3. Calves are soft, compressible, nontender bilaterally. He is able to actively dorsiflex plantar flex. Sensation intact to light touch throughout bilateral lower extremities. Objective Labs Result Diagrams: 02/19/18 06:25 Labs: Laboratory Results - last 24 hr 02/19/18 06:25 Hgb 11.4 L Hct 33.7 L Assessment & Plan Post-op Postoperative Procedures Operation Date: 02/18/18 07:45 Actual Procedures Side Surgeon p L4-5 HWR, Exploration of Fusion, L3-4, L5-S1 TLIF w/L3-4,L4-5,L5-S1 PSF w/ Instru. Zeny Gorman MD POD #1 status post lumbar fusion with Dr. Gorman. Continue current pain control. Patient can ambulate later this morning with physical therapy. No excessive bending, lifting, or twisting. He was started on Decadron for 24 hr burst. Plan to discharge home in next 1-2 days. Time Spent With Patient less than 15 minutes
[2018-02-19] MEDS: SENNOSIDES 8.6 MG TABLET 17.2 MG PO (18:06)
[2018-02-19] MEDS: GABAPENTIN 300 MG CAPSULE 900 MG PO (21:24)
[2018-02-19] MEDS: TRAZODONE 50 MG TABLET PO (21:24)
[2018-02-20] VITALS (7 sets, daily range): BP systolic 104–142; BP diastolic 62–87; PULSE 61–92; RESP 16–20; TEMP 36.6–37.3; O2SAT 94–98
[2018-02-20] MEDS: OXYCODONE IR 5 MG TABLET 15 MG PO ×6 (00:29→19:59)
[2018-02-20] MEDS: DEXAMETHASONE 4 MG TABLET PO ×2 (00:29→06:30)
--- NOTE | 2018-02-20 04:21 | PC.NURSE ---
Addendum entered by Sosa Shin R.N. 02/20/18 06:47: Novak output for night was approx 2000mls. Novak catheter D/C'd at 0635. Original Note: Rodent Control Worker-Pt rated pain to lower back 3-5/10. Oxycodone 15mg prn given at 0030 & 0410. Pt was able to sleep for just over 3hrs straight. States much better pain control tonight. Needs reminders to not cross BLE, even when pillow placed between legs. Repositions self in bed indep from side to side with pillow support. CMS+, No BLE edema noted, PPP, SCDs to bilateral feet encouraged and placed back on at beginning of shift. Novak insitu draining clear yellow urine qs amount. Plan to remove at 0630, pt agreeable. Incisional dressing exposing distal tana. Dressing removed and cleansed with normal saline. Dry 4X4 gauze and Telfa dressing with border applied. Pt tolerated well.
--- NOTE | 2018-02-20 07:34 | PM.PNPO.1 ---
Subjective Date Patient Seen: 02/20/18 Time Patient Seen: 07:34 Interval history: Patient is status post lumbar fusion by Dr. Gorman. Postop day 2. States he is feeling better today. Has been up with physical therapy and walked down the [place]. Has not done stairs yet. Still having difficulty getting in and out of bed. History of left footdrop which seems to be getting better post operatively. Pain manageable with current pain medications. Exam Vital Signs (past 8 hours): - 02/19/18 23:51 02/20/18 00:20 02/20/18 06:00 Temperature 99.7 F H 98.0 F Pulse Rate 65 72 Respiratory Rate 16 16 Blood Pressure 118/63 123/77 H Pulse Oximetry 94 94 96 Oxygen Delivery Method Room Air Oxygen Flow Rate 0 Narrative Exam Narrative: Patient in bed. Appears comfortable. Alert and orient x3. Vac dressing clean dry and intact. 5/5 bilateral ankle strength. Numbness in bilateral feet up to willams area. Good distal pulses. Bilateral calves soft and nontender. Objective Labs Result Diagrams: 02/19/18 06:25 Assessment & Plan Post-op Postoperative Procedures Operation Date: 02/18/18 07:45 Actual Procedures Side Surgeon p L4-5 HWR, Exploration of Fusion, L3-4, L5-S1 TLIF w/L3-4,L4-5,L5-S1 PSF w/Instru. Zeny Gorman MD postop day 2. Continue physical therapy. Continue pain management. Currently on a steroid burst for pain. Patient to continue wearing footdrop brace. Plan for discharge home tomorrow. Time Spent With Patient less than 15 minutes
--- NOTE | 2018-02-20 07:37 | P.PN_ITS ---
Subjective Date Patient Seen: 02/20/18 Time Patient Seen: 07:34 Interval history: Patient is status post lumbar fusion by Dr. Gorman. Postop day 2. States he is feeling better today. Has been up with physical therapy and walked down the [place]. Has not done stairs yet. Still having difficulty getting in and out of bed. History of left footdrop which seems to be getting better post operatively. Pain manageable with current pain medications. Exam Vital Signs (past 8 hours): - 02/19/18 23:51 02/20/18 00:20 02/20/18 06:00 Temperature 99.7 F H 98.0 F Pulse Rate 65 72 Respiratory Rate 16 16 Blood Pressure 118/63 123/77 H Pulse Oximetry 94 94 96 Oxygen Delivery Method Room Air Oxygen Flow Rate 0 Narrative Exam Narrative: Patient in bed. Appears comfortable. Alert and orient x3. Vac dressing clean dry and intact. 5/5 bilateral ankle strength. Numbness in bilateral feet up to willams area. Good distal pulses. Bilateral calves soft and nontender. Objective Labs Result Diagrams: 02/19/18 06:25 Assessment & Plan Post-op Postoperative Procedures Operation Date: 02/18/18 07:45 Actual Procedures Side Surgeon p L4-5 HWR, Exploration of Fusion, L3-4, L5-S1 TLIF w/L3-4,L4-5,L5-S1 PSF w/ Instru. Zeny Gorman MD postop day 2. Continue physical therapy. Continue pain management. Currently on a steroid burst for pain. Patient to continue wearing footdrop brace. Plan for discharge home tomorrow. Time Spent With Patient less than 15 minutes
[2018-02-20] MEDS: ATENOLOL 50 MG TABLET PO (09:03)
[2018-02-20] MEDS: DOCUSATE 100 MG CAPSULE PO ×2 (09:03→20:01)
[2018-02-20] MEDS: KETOROLAC 0.5% 1 EACH EYE-BOTH ×3 (09:03→20:01)
[2018-02-20] MEDS: PREDNISOLONE 1% 1 EACH EYE-BOTH ×3 (09:03→20:01)
[2018-02-20] MEDS: GABAPENTIN 300 MG CAPSULE PO (09:03)
[2018-02-20] MEDS: SODIUM CHLORIDE 0.9% FLUSH 10 ML IV ×2 (09:04→20:01)
--- NOTE | 2018-02-20 10:13 | OT.IP.TRT ---
Current Diagnoses Foot drop, right foot (02/18/18) Other spondylosis with radiculopathy, lumbar region (02/18/18) Spinal stenosis, lumbar region without neurogenic claudication (02/18/18) Arthrodesis status (02/18/18) Surgery Performed Operation Date: 02/18/18 07:45 Actual Procedures p L4-5 HWR, Exploration of Fusion, L3-4, L5-S1 TLIF w/L3-4,L4-5,L5-S1 PSF w/Instru. - Zeny Gorman MD Occupational Therapy Treatment Note M2 OT-IP Current Condition Start: 02/19/18 12:29 Freq: Status: Active Protocol: Document 02/19/18 12:29 [facility] (Rec: 02/19/18 12:48 [facility] [email or web address]) Occupational Therapy Current Condition Current Condition Evaluation Date 02/19/18 Treatment Diagnosis Lumbar stenosis Diagnosis Onset Date 02/18/18 Post Operative Precautions Lumbar Precautions Log Roll No Twisting Limit Bending Lifting Restriction of 10 lbs Gait Belt above Incisional Area Weight Bearing Status Weight Bearing Status Weight Bear as Tolerated M3 OT- IP Subjective and Pain Start: 02/19/18 12:29 Freq: Status: Active Protocol: Document 02/20/18 09:59 [facility] (Rec: 02/20/18 10:13 [facility] [email or web address]) OT- Subjective Occupational Therapy Visit Type Type Treatment Note Visit Start Time 09:08 Visit Stop Time 09:48 Total Visit Minutes 40 Occupational Therapy Visit Comments Patient Comments Pt requesting to go to the bathroom. OT Pain Assessment Pain When Pain Assessed During Mobility Pain Present Pain Present Pain Reported Location Back Intensity 3 Scale Used Numeric (1 - 10) M4 OT- IP ADL's Start: 02/19/18 12:29 Freq: Status: Active Protocol: Document 02/20/18 09:59 [facility] (Rec: 02/20/18 10:13 [facility] [email or web address]) OT ADL-Grooming General Evaluation Grooming Ability Standby Assistance Contact Guard Assistance Comments OT Grooming Comments Able to stand, unsteady while not holding onto FWW or counter and needing occasional CGA for balance. OT ADL-Oral Care General Eval Oral Care Ability Standby Assistance Areas of Assistance Retrieving/Set-Up of Items OT ADL-Dressing General Eval Lower Body Dressing Ability Maximum Assistance Areas Needing Assistance Socks Shoes Orthosis/Prosthesis OT ADL-Toileting General Evaluation Toileting Ability Standby Assistance Comments OT Toileting Comments VC to use FWW over the toilet as still unsteady on his feet. M6 OT- IP Functional Cognition Start: 02/19/18 12:29 Freq: Status: Active Protocol: Document 02/20/18 09:59 [facility] (Rec: 02/20/18 10:13 [facility] [email or web address]) Cognitive Factors Limiting Selfcare Function Cognitive Ability Level of Alertness Alert Patient Orientation Name Place Situation Attention Span Ability Capable of Focused Attention Capable of Sustained Attention Ability to Follow Commands Able to Follow Multi-Step Commands Memory Description No Deficits Noted Safety Awareness Decreased Ability to Apply Precautions Underestimates Need for Assistance Cognitive Comments Cognitive Assessment Comments Pt able to recall back precautions however still needing clues to incorporate precautions during functional mobility and ADL's. M7 OT- IP Mobility and Balance Start: 02/19/18 12:29 Freq: Status: Active Protocol: Document 02/20/18 09:59 [facility] (Rec: 02/20/18 10:13 [facility] [email or web address]) OT- Bed Mobility Assessment Rolling Type of Rolling Log Rolling Supine to Sit Supine to Sit Assist Standby Assistance Bedrails OT-Transfer Assessment Sit to and From Stand Sit to and from Stand Standby Assistance Transfers Transfer Ability Standby Assistance Technique Transfer Destination Chair Devices Transfer Assistive Devices Gait Belt Front Wheeled Walker Orthotic/Prosthetic Devices or Brace: Yes Comments Mobility Comments VC to use BUE to push up from the bed, vc to straighten legs first as pt tends to hesitate and try to reach FWW before straightening legs. OT- Balance Assessment Standing Balance and Reactions Static Standing Balance Ability Fair Dynamic Standing Balance Ability Poor M8 OT- IP Objective Assessments Start: 02/19/18 12:29 Freq: Status: Active Protocol: Document 02/19/18 12:29 [facility] (Rec: 02/19/18 12:48 [facility] [email or web address]) OT Gross Range of Motion Upper Extremity Range of Motion Assessment Within Functional Limits OT Strength Upper Extremity Strength Assessment Within Functional Limits Hand Stave And Bolt Equalizer Strength Hand Dominance Right Comments Strength Comments Right medication assistant stronger than left M9 OT- IP Assessment and Plan Start: 02/19/18 12:29 Freq: Status: Active Protocol: Document 02/20/18 09:59 [facility] (Rec: 02/20/18 10:13 [facility] [email or web address]) OT Summary Assessment and Plan Goals Days to Meet Goals 2 Frequency of Treatment Frequency Of Treatment Once a Day Treatment Plan OT Treatment Plan ADL Training Functional Cognition Training Functional Mobility Patient/Family Education Discharge Planning Other Treatment Recommendations and Next Shower,caregiver training Treatment Focus Discharge Recommendations OT Discharge Recommendations Home with Assistance Home Equipment Needs Shower chair, FWW
--- NOTE | 2018-02-20 10:18 | PT.IPTN ---
Current Diagnoses Foot drop, right foot (02/18/18) Other spondylosis with radiculopathy, lumbar region (02/18/18) Spinal stenosis, lumbar region without neurogenic claudication (02/18/18) Arthrodesis status (02/18/18) Surgery Performed Operation Date: 02/18/18 07:45 Actual Procedures p L4-5 HWR, Exploration of Fusion, L3-4, L5-S1 TLIF w/L3-4,L4-5,L5-S1 PSF w/Instru. - Zeny Gorman MD Physical Therapy Treatment Note M2 PT-IP Current Condition Start: 02/19/18 12:23 Freq: NEEDED Status: Active Protocol: Document 02/19/18 11:00 AB (Rec: 02/19/18 12:40 AB [id number]) Physical Therapy Current Condition Current Condition Evaluation Date 02/19/18 Treatment Diagnosis s/p L3-4, L5 S1 TLIF; difficulty in walking Onset Date 02/18/18 Precautions Lumbar Precautions Log Roll No Twisting Limit Bending Lifting Restriction of 10 lbs Gait Belt above Incisional Area Brace L AFO M3 PT-IP Subjective Start: 02/19/18 12:23 Freq: NEEDED Status: Active Protocol: Document 02/20/18 10:18 AB (Rec: 02/20/18 11:46 AB [email or web address]) Subjective Physical Therapy Visit Type Type Treatment Note Visit Start Time 10:18 Visit Stop Time 10:41 Total Visit Minutes 23 Number of JEWEL SUPERVISOR Visits 0 Physical Therapy Visit Comments Patient Comments pt agreeable to do therapy Therapy Pain Assessment Pain When Pain Assessed At Rest Pain Present Pain Present Pain Reported Location Back Intensity 3 Scale Used Numeric (1 - 10) Pain Management Techniques Re-positioning Timing of Activity with Medications M4 PT-IP Mobility and Gait Start: 02/19/18 12:23 Freq: NEEDED Status: Active Protocol: Document 02/20/18 10:18 AB (Rec: 02/20/18 11:46 AB [email or web address]) PT-Transfer Assessment Sit to and From Stand Sit to and from Stand Contact Guard Assistance Equipment Transfer Assistive Device Gait Belt Front Wheeled Walker Orthotic/Prosthetic Devices or Brace: Yes Comments Mobility Comments pt has L AFO Gait Assessment Gait Gait Assistance Required: Standby Assistance 1 Person Assist Distance (Feet) (feet) 250 Able to Maintain Weight Bearing Status Yes During Gait Assistive Devices Assistive Device Gait Belt Front Wheeled Walker 4 Wheeled Walker Orthotic/Prosthetic Devices or Brace: Yes Gait Deviations General Gait Pattern Decreased Stride Length Decreased Feet Clearance Factors Limiting Gait Function Factors Limiting Gait Function Decreased Activity Tolerance Decreased Sensation Decreased Strength Pain Poor Balance Comments Gait Comments pt ambulated 250 ft x 2 using FWW on first ambulation and then a 4WW on 2nd ambulation requiring SBA to occasional CGA and cues for safety. Stair Climbing Assessment Evaluation Level of Assist On Stairs Standby Assistance Contact Guard Assistance Devices Stair Climbing Assistive Devices Left Railing Right Railing Technique/Endurance Stair Climbing Direction Ascend and Descend Stair Climbing Technique Step Over Step Number of Steps Climbed 3 Query Text: Stair Climbing Set # Repetitions (reps) 2 M5 PT-IP Objective Assessments Start: 02/19/18 12:23 Freq: NEEDED Status: Active Protocol: Document 02/19/18 11:00 AB (Rec: 02/19/18 12:40 AB [id number]) Orientation Orientation/Cognition Level of Alertness Alert Orientation Name Age Birthday Month Date Year Day of Week Place Situation Gross Range of Motion Lower Extremity ROM Assessment Within Functional Limits Strength Lower Extremity Strength Assessment Bilaterally Impaired Hip 4-/5 Knee 3+/5 Comments Strength Comments RLE weaker than LLE Sensation Assessment Sensation Gross Sensation Right LE Impaired Left LE Impaired Sensation Description Numbness Comments Sensation Comments B feet numbness M6 PT-IP Treatment Start: 02/19/18 12:23 Freq: NEEDED Status: Active Protocol: Document 02/20/18 10:18 AB (Rec: 02/20/18 11:46 AB [email or web address]) Physical Therapy Treatment Education Education Provided Precautions Post-Op Packet Safety M7 PT-IP Assessment and Plan Start: 02/19/18 12:23 Freq: NEEDED Status: Active Protocol: Document 02/20/18 10:18 AB (Rec: 02/20/18 11:46 AB [email or web address]) PT Summary Assessment and Plan Potential Rehabilitation Potential Good Summary Impairments Pain ROM Strength Balance Sensation Bed Mobility Transfers Gait Activity Tolerance Progress Towards Goals Progressing Toward Goals Assessment Summary pt progressing well with mobility. Assessed safety with use of 4WW and pt was able to ambulate requiring SBA to CGA and cues. Pt may go home with spouse to assist him . Goals Bed Mobility Goal Standby Assistance Transfer Goal Standby Assistance Four Wheeled Walker Gait Goal Standby Assistance Four Wheel Walker Gait Distance 150 Other Goals up/down 8 steps with L rail ascending; 4 steps with bilateral rails SBA Days to Meet Goals 3 Frequency of Treatment Frequency Of Treatment Twice a Day Treatment Plan Physical Therapy Treatment Plan Bed Mobility Training Transfer Training Gait Training Therapeutic Exercise Balance Retraining Post Op Education Discharge Planning Hot or Cold Pack Neuromuscular Re-ed Coordination Retraining Manual Therapy Recommendations To Nursing Amount of Assist Needed 1 Person Assist Discharge Recommendations PT Discharge Recommendations Home with Assistance
[2018-02-20] MEDS: hydrOXYzine pamoate 25 MG CAPSULE PO (12:21)
--- NOTE | 2018-02-20 14:30 | PT.IPTN ---
Current Diagnoses Foot drop, right foot (02/18/18) Other spondylosis with radiculopathy, lumbar region (02/18/18) Spinal stenosis, lumbar region without neurogenic claudication (02/18/18) Arthrodesis status (02/18/18) Surgery Performed Operation Date: 02/18/18 07:45 Actual Procedures p L4-5 HWR, Exploration of Fusion, L3-4, L5-S1 TLIF w/L3-4,L4-5,L5-S1 PSF w/Instru. - Zeny Gorman MD Physical Therapy Treatment Note M2 PT-IP Current Condition Start: 02/19/18 12:23 Freq: NEEDED Status: Active Protocol: Document 02/19/18 11:00 AB (Rec: 02/19/18 12:40 AB [id number]) Physical Therapy Current Condition Current Condition Evaluation Date 02/19/18 Treatment Diagnosis s/p L3-4, L5 S1 TLIF; difficulty in walking Onset Date 02/18/18 Precautions Lumbar Precautions Log Roll No Twisting Limit Bending Lifting Restriction of 10 lbs Gait Belt above Incisional Area Brace L AFO M3 PT-IP Subjective Start: 02/19/18 12:23 Freq: NEEDED Status: Active Protocol: Document 02/20/18 14:30 AB (Rec: 02/20/18 15:28 AB [email or web address]) Subjective Physical Therapy Visit Type Type Treatment Note Visit Start Time 14:30 Visit Stop Time 14:40 Total Visit Minutes 10 Number of ENVIRONMENTAL SERVICES SPECIALIST Visits 10 Physical Therapy Visit Comments Patient Comments pt agreeable to do ambulation Therapy Pain Assessment Pain When Pain Assessed At Rest Pain Present Pain Present Pain Reported Location Back Intensity 4 Scale Used Numeric (1 - 10) M4 PT-IP Mobility and Gait Start: 02/19/18 12:23 Freq: NEEDED Status: Active Protocol: Document 02/20/18 14:30 AB (Rec: 02/20/18 15:28 AB [email or web address]) PT-Bed Mobility Assessment Supine to Sit Supine to Sit Standby Assistance Bedrails PT-Transfer Assessment Sit to and From Stand Sit to and from Stand Contact Guard Assistance Use of Upper Extremities Gait Assessment Gait Gait Assistance Required: Contact Guard Assist Distance (Feet) (feet) 200 Able to Maintain Weight Bearing Status Yes During Gait Assistive Devices Assistive Device Gait Belt 4 Wheeled Walker Orthotic/Prosthetic Devices or Brace: Yes Gait Deviations General Gait Pattern Decreased Stride Length Decreased Feet Clearance Factors Limiting Gait Function Factors Limiting Gait Function Decreased Activity Tolerance Decreased Strength Pain Poor Balance Poor Safety Awareness M5 PT-IP Objective Assessments Start: 02/19/18 12:23 Freq: NEEDED Status: Active Protocol: Document 02/19/18 11:00 AB (Rec: 02/19/18 12:40 AB [id number]) Orientation Orientation/Cognition Level of Alertness Alert Orientation Name Age Birthday Month Date Year Day of Week Place Situation Gross Range of Motion Lower Extremity ROM Assessment Within Functional Limits Strength Lower Extremity Strength Assessment Bilaterally Impaired Hip 4-/5 Knee 3+/5 Comments Strength Comments RLE weaker than LLE Sensation Assessment Sensation Gross Sensation Right LE Impaired Left LE Impaired Sensation Description Numbness Comments Sensation Comments B feet numbness M6 PT-IP Treatment Start: 02/19/18 12:23 Freq: NEEDED Status: Active Protocol: Document 02/20/18 14:30 AB (Rec: 02/20/18 15:28 AB [id number]) Physical Therapy Treatment Education Education Provided Precautions Weight Bearing Status Post-Op Packet Safety M7 PT-IP Assessment and Plan Start: 02/19/18 12:23 Freq: NEEDED Status: Active Protocol: Document 02/20/18 14:30 AB (Rec: 02/20/18 15:28 AB [email or web address]) PT Summary Assessment and Plan Potential Rehabilitation Potential Good Summary Impairments Pain ROM Strength Balance Bed Mobility Transfers Gait Activity Tolerance Progress Towards Goals Progressing Toward Goals Assessment Summary pt requiring CGA with ambulation using FWW. pt plans to go home with spouse to assist him at home. Goals Bed Mobility Goal Standby Assistance Transfer Goal Standby Assistance Four Wheeled Walker Gait Goal Standby Assistance Four Wheel Walker Gait Distance 200 Other Goals up/down 8 steps with L rail ascending; 4 steps with bilateral rails SBA Days to Meet Goals 3 Frequency of Treatment Frequency Of Treatment Twice a Day Treatment Plan Physical Therapy Treatment Plan Bed Mobility Training Transfer Training Gait Training Therapeutic Exercise Balance Retraining Post Op Education Discharge Planning Hot or Cold Pack Neuromuscular Re-ed Coordination Retraining Manual Therapy Recommendations To Nursing Amount of Assist Needed 1 Person Assist Discharge Recommendations PT Discharge Recommendations Home with Assistance
[2018-02-20] MEDS: HYDROMORPHONE 0.5 MG INJ IV ×2 (16:58→21:29)
[2018-02-20] MEDS: TRAZODONE 50 MG TABLET PO (20:01)
[2018-02-20] MEDS: SENNOSIDES 8.6 MG TABLET 17.2 MG PO (20:01)
[2018-02-20] MEDS: GABAPENTIN 300 MG CAPSULE 900 MG PO (20:01)
[2018-02-21] MEDS: OXYCODONE IR 5 MG TABLET 15 MG PO ×4 (00:57→11:51)
[2018-02-21] MEDS: hydrOXYzine pamoate 25 MG CAPSULE PO ×2 (00:58→06:29)
--- NOTE | 2018-02-21 01:18 | PC.NURSE ---
Addendum entered by Zahra Cornell R.N. 02/21/18 06:32: Slept at intervals. Voiding in good amounts; 3100cc this shift. States pain is improving but still 4/10 so medicated with Vistaril. Informed he is able to have more Oxycodone at 0710. Original Note: Addendum entered by Zahra Cornell R.N. 02/21/18 04:16: Medicated with Oxycodone for 6/10 back pain radiating to right leg Original Note: Alert and oriented. Breath sounds with scattered inspiratory wheezing but RA sat of 98%; encouraged to CDB and use I.S. when awake. HRR. Denies nausea. BT present and is passing flatus but has not had BM since 02/17. Abdomen is distended and firm. Received prune juice cocktail on previous shift and declines anything additional at this time. Voiding per urinal and denies dysuria, frequency, urgency or incontinence. Is able to turn self in bed. Dressing to back is CDI. Pain is currently 6/10 in back radiating into legs and hamstrings; medicated with Oxycodone + Vistaril and repositioned in bed. Wearing bilateral footie SCD's. Fall risk score is high and bed alarm is activated.
[2018-02-21 05:24] VITALS: BP 133/56; PULSE 66; RESP 16; TEMP 37.3; O2SAT 96
[2018-02-21 07:15] VITALS: BP 114/77; PULSE 74; RESP 16; TEMP 36.7; O2SAT 96
--- NOTE | 2018-02-21 07:31 | PM.DS.1 ---
History of Present Illness Date Patient Seen: 02/21/18 Time Patient Seen: 07:32 Chief complaint: [id number] Narrative: Status post lumbar fusion Discharge Providers Date of admission: 02/18/18 06:40 Primary care physician: Justyna Alexandra MD Consults: 02/18/18 14:03 Consult to Occupational Therapy Evaluate & Treat Comment: Physician Instructions: Evaluate and treat Consult to Physical Therapy Evaluate & Treat Comment: Physician Instructions: Evaluate and Treat Discharge provider: Val Reagan PA-C Summary Discharge Diagnosis: Status post lumbar fusion Gout Diabetes Hospital Course: Sarabjit was admitted for lumbar fusion with Dr. Gorman, and he consented to procedure. Hospital course was unremarkable. On postop day number 3 patient was feeling well and ready to go home with his . He did have increased pain after surgery and was provided with a Medrol steroid burst. His pain has been controlled with oxycodone and Vistaril. He has noticed a significant difference in his left foot drop. He was ambulating with physical therapy. He is aware of his spinal precautions. He was eating and voiding without difficulty or assistance. On day of discharge cover site dressing was applied. Status at Discharge Functional status at discharge: uses cane/walker Exam Vital Signs (past 8 hours): - 02/20/18 23:58 02/21/18 05:24 Temperature 99.2 F 99.2 F Pulse Rate 64 66 Respiratory Rate 18 16 Blood Pressure 142/78 H 133/56 H Pulse Oximetry 98 96 Oxygen Delivery Method Room Air Oxygen Flow Rate 0 Narrative Exam Narrative: Patient lying in bed in no acute distress. He is alert and oriented x3. Cover site dressing applied before discharge. Dorsiflexion and plantar flexion 5/5. Sensation intact to light touch throughout bilateral lower extremities. Calves are soft, compressible, nontender bilaterally. Pulses are symmetrical. His pain is well controlled this morning. He denies any chest pain, or shortness of breath. No difficulty urinating. Discussed with patient he should take Vistaril at night when he goes home. Objective Labs Result Diagrams: 02/19/18 06:25 Discharge Plan Discharge Plan Patient Disposition: Home, Self-Care Discharge comment: DC home today with , coversite dressing before he leaves Discharge Med Rec/Prescriptions Prescriptions: New hydroxyzine pamoate 25 mg Capsule 25 mg PO Q6HR PRN (Reason: muscle spasms) Qty: 40 RF: 1 oxycodone 5 mg capsule 5 mg PO Q4-6H PRN (Reason: pain) Qty: 90 RF: 0 Continue trazodone 50 mg Tablet 50 mg PO BEDTIME RF: 0 ketorolac 0.5 % Drops 1 drp EYE-BOTH TID RF: 0 prednisolone acetate 1 % Drops,Suspension 1 drp EYE-BOTH TID RF: 0 diphenhydramine HCl [Benadryl Allergy] 25 mg Tablet 50 mg PO BEDTIME RF: 0 gabapentin 300 mg Capsule 900 mg PO BEDTIME RF: 0 acetaminophen 500 mg Capsule 500 mg PO BID RF: 0 atenolol 50 mg Tablet 50 mg PO QAM RF: 0 gabapentin 300 mg Capsule 300 mg PO DAILY RF: 0 Discontinued ibuprofen 200 mg Capsule 200 mg PO BID RF: 0 Follow up/Referrals: Zeny Gorman MD [Physician] - (03/01 at [facility]) Provider Discharge Instructions Diet: Regular Activity: No excessive bending, lifting, or twisting Cold/Heat Therapy: As needed Skin/Wound/Dressing Care Report to your healthcare provider any signs of infection, such as:: chills, fever, increased pain and unusual drainage Dressing: Please leave cover site dressing on until follow-up appointment Visit Report/Discharge Packet Instructions: DI for Transforaminal Lumbar Interbody Fusion Discharge Data Primary Care Provider: Justyna Alexandra Attending Provider: Zeny Gorman Admit Date/Time: 02/18/18 06:40
[2018-02-21] MEDS: ATENOLOL 50 MG TABLET PO (08:32)
[2018-02-21] MEDS: KETOROLAC 0.5% 1 EACH EYE-BOTH (08:33)
[2018-02-21] MEDS: GABAPENTIN 300 MG CAPSULE PO (08:33)
[2018-02-21] MEDS: DOCUSATE 100 MG CAPSULE PO (08:33)
[2018-02-21] MEDS: PREDNISOLONE 1% 1 EACH EYE-BOTH (08:33)
[2018-02-21] MEDS: SODIUM CHLORIDE 0.9% FLUSH 10 ML IV (08:34)
--- NOTE | 2018-02-21 09:10 | PT.IPTN ---
Current Diagnoses Foot drop, right foot (02/18/18) Other spondylosis with radiculopathy, lumbar region (02/18/18) Spinal stenosis, lumbar region without neurogenic claudication (02/18/18) Arthrodesis status (02/18/18) Surgery Performed Operation Date: 02/18/18 07:45 Actual Procedures p L4-5 HWR, Exploration of Fusion, L3-4, L5-S1 TLIF w/L3-4,L4-5,L5-S1 PSF w/Instru. - Zeny Gorman MD Physical Therapy Treatment Note M2 PT-IP Current Condition Start: 02/19/18 12:23 Freq: NEEDED Status: Active Protocol: Document 02/19/18 11:00 AB (Rec: 02/19/18 12:40 AB [id number]) Physical Therapy Current Condition Current Condition Evaluation Date 02/19/18 Treatment Diagnosis s/p L3-4, L5 S1 TLIF; difficulty in walking Onset Date 02/18/18 Precautions Lumbar Precautions Log Roll No Twisting Limit Bending Lifting Restriction of 10 lbs Gait Belt above Incisional Area Brace L AFO M3 PT-IP Subjective Start: 02/19/18 12:23 Freq: NEEDED Status: Active Protocol: Document 02/21/18 09:10 AB (Rec: 02/21/18 14:01 AB [email or web address]) Subjective Physical Therapy Visit Type Type Treatment Note Visit Start Time 09:10 Visit Stop Time 09:25 Total Visit Minutes 15 Number of AUTO BODY REPAIR TEACHER Visits 0 Physical Therapy Visit Comments Patient Comments pt agreeable to do therapy Therapy Pain Assessment Pain When Pain Assessed At Rest Pain Present Pain Present Pain Reported Location Back Intensity 3 Scale Used Numeric (1 - 10) M4 PT-IP Mobility and Gait Start: 02/19/18 12:23 Freq: NEEDED Status: Active Protocol: Document 02/21/18 09:10 AB (Rec: 02/21/18 14:01 AB [email or web address]) PT-Transfer Assessment Sit to and From Stand Sit to and from Stand Standby Assistance Equipment Transfer Assistive Device Gait Belt 4 Wheeled Walker Comments Mobility Comments pt requested to use the toilet after ambulation and ambulated the toilet using 4WW sba. Gait Assessment Gait Gait Assistance Required: Standby Assistance Distance (Feet) (feet) 225 Able to Maintain Weight Bearing Status Yes During Gait Assistive Devices Assistive Device Gait Belt 4 Wheeled Walker Orthotic/Prosthetic Devices or Brace: Yes Gait Deviations General Gait Pattern Decreased Stride Length Decreased Feet Clearance Factors Limiting Gait Function Factors Limiting Gait Function Decreased Activity Tolerance Decreased Strength Pain Poor Balance Poor Safety Awareness Stair Climbing Assessment Evaluation Level of Assist On Stairs Contact Guard Assistance Devices Stair Climbing Assistive Devices Left Railing Technique/Endurance Stair Climbing Direction Ascend and Descend Stair Climbing Technique Step Over Step Number of Steps Climbed 3 Query Text: Stair Climbing Set # Repetitions (reps) 1 M5 PT-IP Objective Assessments Start: 02/19/18 12:23 Freq: NEEDED Status: Active Protocol: Document 02/19/18 11:00 AB (Rec: 02/19/18 12:40 AB [id number]) Orientation Orientation/Cognition Level of Alertness Alert Orientation Name Age Birthday Month Date Year Day of Week Place Situation Gross Range of Motion Lower Extremity ROM Assessment Within Functional Limits Strength Lower Extremity Strength Assessment Bilaterally Impaired Hip 4-/5 Knee 3+/5 Comments Strength Comments RLE weaker than LLE Sensation Assessment Sensation Gross Sensation Right LE Impaired Left LE Impaired Sensation Description Numbness Comments Sensation Comments B feet numbness M6 PT-IP Treatment Start: 02/19/18 12:23 Freq: NEEDED Status: Active Protocol: Document 02/21/18 09:10 AB (Rec: 02/21/18 14:01 AB [email or web address]) Physical Therapy Treatment Education Education Provided Precautions Weight Bearing Status Post-Op Packet Safety M7 PT-IP Assessment and Plan Start: 02/19/18 12:23 Freq: NEEDED Status: Active Protocol: Document 02/21/18 09:10 AB (Rec: 02/21/18 14:01 AB [email or web address]) PT Summary Assessment and Plan Potential Rehabilitation Potential Good Summary Impairments Pain ROM Strength Balance Cognition Bed Mobility Transfers Gait Activity Tolerance Progress Towards Goals Progressing Toward Goals Assessment Summary pt doing well with mobility. educated on safety and pacing self with mobility and ambulation. pt may go home when medically stable. Goals Bed Mobility Goal Standby Assistance Transfer Goal Standby Assistance Four Wheeled Walker Gait Goal Standby Assistance Four Wheel Walker Gait Distance 200 Other Goals up/down 8 steps with L rail ascending; 4 steps with bilateral rails SBA Days to Meet Goals 3 Frequency of Treatment Frequency Of Treatment Twice a Day Treatment Plan Physical Therapy Treatment Plan Bed Mobility Training Transfer Training Gait Training Therapeutic Exercise Balance Retraining Post Op Education Discharge Planning Hot or Cold Pack Neuromuscular Re-ed Coordination Retraining Manual Therapy Recommendations To Nursing Amount of Assist Needed 1 Person Assist Discharge Recommendations PT Discharge Recommendations Home with Assistance
--- NOTE | 2018-02-21 10:59 | OT.IP.TRT ---
Current Diagnoses Foot drop, right foot (02/18/18) Other spondylosis with radiculopathy, lumbar region (02/18/18) Spinal stenosis, lumbar region without neurogenic claudication (02/18/18) Arthrodesis status (02/18/18) Surgery Performed Operation Date: 02/18/18 07:45 Actual Procedures p L4-5 HWR, Exploration of Fusion, L3-4, L5-S1 TLIF w/L3-4,L4-5,L5-S1 PSF w/Instru. - Zeny Gorman MD Occupational Therapy Treatment Note M2 OT-IP Current Condition Start: 02/19/18 12:29 Freq: Status: Active Protocol: Document 02/19/18 12:29 [facility] (Rec: 02/19/18 12:48 [facility] [email or web address]) Occupational Therapy Current Condition Current Condition Evaluation Date 02/19/18 Treatment Diagnosis Lumbar stenosis Diagnosis Onset Date 02/18/18 Post Operative Precautions Lumbar Precautions Log Roll No Twisting Limit Bending Lifting Restriction of 10 lbs Gait Belt above Incisional Area Weight Bearing Status Weight Bearing Status Weight Bear as Tolerated M3 OT- IP Subjective and Pain Start: 02/19/18 12:29 Freq: Status: Active Protocol: Document 02/21/18 10:58 [facility] (Rec: 02/21/18 10:59 [facility] [id number]) OT- Subjective Occupational Therapy Visit Type Type Administrative Note Notes Pt states does not have any more questions for OT needs and already took at shower yesterday and awaiting to come and take him home.
--- NOTE | 2018-02-21 11:18 | CM.DPC ---
DCP Discharge Home Per PA, pt is medically stable to d/c home with today and no identified barriers to discharge. Per RN, pt has showered and waiting for to provide transport. Per PT/OT, pt safe for d/c home with support. Plan: Patient to d/c home today via POV and no SW needs at this time. CRYSTAL Mckenna
[2018-02-21 11:45] VITALS: BP 128/85; PULSE 67; RESP 16; TEMP 36.8; O2SAT 98
--- NOTE | 2018-02-21 14:01 | PC.NURSE ---
pt dc'd home with , states he ahs all personal belongigns and Rx, verbalized dc instructions and has no further questions at this time, pt taken to POV via wheelchair
== END 2018-02-21 14:02 | disposition home or self-care (01) | DRG 454 ==
PROVIDERS: Admitting Provider Orthopaedic Surgery Orthopaedic Surgery of the Spine; PCP Student in an Organized Health Care Education/Training Program; Visit Provider Orthopaedic Surgery Orthopaedic Surgery of the Spine
PROC: 0SG00AJ Fusion of Lumbar Vertebral Joint with Interbody Fusion Device, Posterior Approach, Anterior Column, Open Approach (ICD-10-PCS; principal; 2018-02-18 07:45)
DX: M48.061 Spinal stenosis, lumbar region without neurogenic claudication (principal); G97.41 Accidental puncture or laceration of dura during a procedure; M48.07 Spinal stenosis, lumbosacral region; M96.1 Postlaminectomy syndrome, not elsewhere classified; G60.9 Hereditary and idiopathic neuropathy, unspecified; M21.372 Foot drop, left foot; Z72.0 Tobacco use; M47.27 Other spondylosis with radiculopathy, lumbosacral region; M47.26 Other spondylosis with radiculopathy, lumbar region
CPT/HCPCS: 36415; 72100; 76001; 85014; 85018; 94760; 97116; 97162; 97165; 97530; 97535; 99406; C1776; C9290; J0330; J0690; J1100; J1170; J2060; J2250; J2405; J2704; J3010

== ENCOUNTER 2019-08-04 06:14 | Inpatient (IN) | payer MEDICARE, OTHER, SELFPAY ==
[2018-02-18 14:38] VITALS: BMI 23.7
[2019-07-18 11:45] VITALS: BMI 24.7
[2019-08-04] VITALS (17 sets, daily range): BP systolic 87–141; BP diastolic 56–86; PULSE 55–70; RESP 9–18; TEMP 36.1–36.4; O2SAT 89–99; BMI 24.7
--- NOTE | 2019-08-04 | DI.RAD.S_ITS ---
PROCEDURE: XR LUMBAR SPINE 2-3V INDICATIONS: L2-S1 TLIF TECHNIQUE: 2 views of the lumbar spine were acquired. COMPARISON: [facility], CR, XR LUMBAR SPINE 2-3V, 02/18/2018, 8:37. FINDINGS: Bones: Immediate postoperative evaluation after posterior fusion at that now extends from L2-S1 with bilateral transverse pedicle screws and vertical fixation rods and interbody disc cage devices at L5-S1 on the right, at the midline at L3-4 and L2-L3. Additional disc prosthesis is centered to the right of midline as was previously the case at L4-L5. Soft tissues: Overlying bowel gas pattern is normal. No suspicious soft tissue calcifications. IMPRESSION: Normal alignment after operative intervention L2-S1 posterior fusion and interbody disc prosthesis devices as discussed. Dictated by: Tone Woods M.D. on 08/04/2019 at 11:53 Approved by: Tone Woods M.D. on 08/04/2019 at 11:55
[2019-08-04] MEDS: LACTATED RINGERS 1,000 ML 42 ML IV ×2 (07:05→09:47)
--- NOTE | 2019-08-04 07:47 | PM.PREOP ---
Pre-operative Note Interval Note History & Physical reviewed/Exam performed by Physician: Yes Changes to H&P: No
[2019-08-04] MEDS: CLINDAMYCIN 900 MG/50 ML PIGGYBACK 50 MG IV ×2 (07:55→16:35)
[2019-08-04] MEDS: BUPIVACAINE 0.25% W/ EPI 30 ML VIAL INJ (09:18)
[2019-08-04] MEDS: BUPIVACAINE LIPOSOME 266 MG/20 ML VIAL INJ (09:47)
--- NOTE | 2019-08-04 11:44 | SUR.OPER ---
Skin reddness where adhesive of drapes and bovie were on patient noted by Dr. Gorman at the end of the case when the drapes and bovie pad were removed. BENCH SCIENTIST notified.
--- NOTE | 2019-08-04 12:00 | PM.PREOP ---
Pre-operative Note Interval Note History & Physical reviewed/Exam performed by Physician: Yes
--- NOTE | 2019-08-04 12:00 | PM.OP.1 ---
Operative Date/Time/Diagnoses Date of procedure: 08/04/19 Time of procedure: 08:00 Pre-op diagnosis: 1. L2-3 spondylolisthesis 2. L2-3 spinal stenosis 3. Hx of L3-S1 PSF with hardware loosening 4. L5-S1 pseudoarthrosis Post-op diagnosis: same Procedure & Clinicians Procedure: 1. L2-3 Postero-lateral and posterior interbody fusion 2. L2-3 interbody cage placement. 3. L2-3 decompressive laminectomy with bilateral facetecomies 4. L2-3 L3-4 L4-5 L5-S1 Posterior segmental instrumentation 5. L3-4, L4-5, L5-S1 posterior segmental hardware removal 6. L3-4, L4-5 L5-S1 exploration of fusion with left hemilaminectomy 7. L5-S1 posterolateral fusion 8. [place] of bone marrow from iliac crest 9. Utilization of microsurgical technique and operating microscope Same procedure as scheduled: Yes Indications: Patient has been having chronic back pain and worsening lumbar radiculopathy. Patient had prior lumbar fusion surgery with worsening back pain and CT showing loosening hardware and possible pseudoarthrosis. Patient failed multiple conservative management with worsening pain weakness and numbness in her lower extremity. Patient has been having difficulty performing activity of daily living. After discussing risks benefits of treatment options, patient elected proceed with surgery. Surgeon: Zeny Gorman Real Estate Marketing Coordinator: Val Reagan Click Yes if Unassisted: No Anesthesia Type: General Operative Notes Closure Type: primary Specimen(s): none sent Prosthetic devices, grafts, tissues, transplants, or devices: Globus revolve screws, Rise cage Applied: catheter Estimated Blood Loss (mL): 100 Blood products transfused: none Procedure in detail: Patient was seen in the preoperative area. Risks and benefits of the surgery was discussed with the patient. Informed consent was obtained from the patient and placed in the chart. Surgical site was marked. Patient was taken to the operative room. General anesthesia was administered. Prophylactic antibiotic was given to the patient less than 30 min before the incision was made. Patient was placed into a prone position on the Yo table. Patient's back was then prepped and draped in the sterile fashion. Time-out was performed at this time. Using patient's previous scar incision was made over the L2-3, L3-4, L4-5, L5-S1 interval on the right side. Fascia was incised in line with skin incision. Patient's previously placed hardware over the L3-4, L4-5, L5-E6mzrod was identified by dissecting down to the level the hardware using a Bovie and a Fuller. The locking caps which was removed using globus screwdriver. The locking joanna was then removed from the tulips of the pedicle screws using a Chung. The pedicle screws were then removed using the screwdriver. The screws were found to have good purchase except in bilateral S1 pedicles. The Globus and MARS retractors was then placed into the wound and docked onto the L2 lamina using C-arm guidance. Using microsurgical technique and operating microscope a laminectomy facetectomy was performed by removing the L2 lamina and the L2-3 facet. The patient was found have severe central and foramen stenosis which was fully decompressed after the laminectomy facetectomy was completed. The disc space at L2-3 level was identified next. And a total diskectomy was performed at L2-3 level. The endplates were decorticated using a rasp and shaver. The total diskectomy and decortication was performed at L2-3 level in order to to accomplish a L2-3 fusion. The local bone from the laminectomy and facetectomy was saved for local bone grafting. After the total diskectomy and decortication was completed, Bio4 bone graft material was combined with local bone that was harvested earlier. At this time, a separate skin is incision was made over the iliac crest. A Jamshidi needle was inserted into the iliac crest through a separate skin incision. 5 cc of bone marrow aspiration was obtained through the separate skin incision using a Jamshidi needle from the iliac crest. The bone marrow aspiration was combined with local bone and the via cell bone grafting material. The bone grafting material was placed into the L2-3 interbody space along with a expandable cage. The cage was expanded to its maximum height using the torque limiting screwdriver. At this time a mirror image incision was made on the left side. The fascia was incised in line with the skin incision. Patient's previously placed hardware on the left side was then removed in the same fashion as it was on the right side. The hardware was also found to have good purchase except in S1 pedicle. The fusion mass on the left side was exposed by performing a left-sided hemilaminectomy at L3-4, L4-5 L5-S1 level. The hemilaminectomy was performed using the Kerrison rongeur to undercut the lamina as well removing additional epidural scar tissue for purpose of decompressing the epidural space. The fusion mass was explored and was found have visible motion indicating pseudoarthrosis at L5-S1 level. The L3-4 L4-5 level was found to have a solid fusion. Globus MARS retractor was inserted and docked onto the L2-3 and L5-S1 posterolateral gutter. Using the power drill, posterior-lateral decortication was performed at L2-3 and L5-S1 level until bleeding cortical bone was identified. The remaining bone grafting material was placed into the L2-3,L5-S1 posterior lateral gutter he order to accomplish posterolateral fusion at the L2-3 and L5-S1 level. Using the double C-arm technique, pedicle screws were placed into the L2-L3-L4-L5 and S1 pedicles bilaterally. This was done by placing the Jamshidi needle into the pedicles, then placing the guidewires over the Jamshidi needle, and finally placing the cannulated screws over the guidewires bilaterally. After the pedicle screws were placed, 2 titanium rods was locked into the heads of the pedicle screws using locking caps and torque limiting screwdriver. The left L5 pedicle screw was redirected in order to gain better purchase and significantly better purchase was obtained using the new trajectory. Larger diameter pedicle screws were placed into the bilateral S1 pedicles and good purchase with was obtained in bilateral S1 pedicles. After all the hardware was placed, and confirmed with AP and lateral C-arm imaging, the wound was then irrigated with sterile normal saline and packed with Ray-Familia gauze for 3 min to accomplish hemostasis. After the gauze was removed the deep fascia was closed with #1 Vicryl suture. The subcutaneous layer was closed with 2-0 Vicryl. The skin was closed with skin tana. Patient tolerated the procedure well. There were no complications. Complications: none Post-operative Condition: stable Disposition: PACU Plan for aftercare: Admit to inpatient hospital
--- NOTE | 2019-08-04 12:06 | SUR.PHASEI ---
Correction: 1148 o2 sat was 94% RA.
--- NOTE | 2019-08-04 12:17 | SUR.PHASEI ---
Dr. Santoro notified patient's CBG is 153. No new orders.
[2019-08-04] MEDS: HYDROMORPHONE 2 MG INJ IV ×4 (12:21→12:41)
[2019-08-04] MEDS: ACETAMINOPHEN 325 MG TABLET 975 MG PO (12:45)
--- NOTE | 2019-08-04 13:03 | SUR.PHASEI ---
Report called to
--- NOTE | 2019-08-04 13:24 | SUR.PHASEI ---
Patient transferred to the floor with belongings bag. O2 sat 88% RA, 95% 2lnc. VS otherwise stable. IV saline locked. Dressing checked with RN. Left foot still weaker than right. Report given to Mary.
[2019-08-04] MEDS: SODIUM CHLORIDE 0.9% 1,000 ML 100 ML IV ×2 (13:27→23:39)
--- NOTE | 2019-08-04 13:40 | PC.NURSE ---
patient to floor 1325, alert, oriented rates pain to back 7/10 and sharp. CMS+ but patient reports he has bilat neuropathy. RA sats 88-90% LS CTA, placed on 1L sats 97%. SCD's on. Patient taking some snacks and fluids, will medicate with pain medicine. Patient oriented to room and call light.
[2019-08-04] MEDS: OXYCODONE IR 5 MG TABLET PO ×2 (13:52→17:39)
--- NOTE | 2019-08-04 16:42 | CM.DANOTE ---
DCP assessment: EMR Reviewed: patient is a 68 yr old male who was admitted for multiple level lumbar fusion preformed by Dr. RIVAS. PCP is Dr. Alexandra. CM/RN met with patient at the bedside, patients Roberto Carlos was present. CM/RN explained role. Patient was alert and oriented X3 during CM visit. Patient currently lives with his in a split level home with between 5 to 7 steps between levels of his home. Patient has FWW and cane at home but on previous back surgery didn't utilize them while recovering. Patient is I with all ADLs and drives at base line. PT and OT evaluations pending. I: Medicare and [facility]. Plan: D/C home with when medically stable. No identified D/C planning needs noted at this time. CM department will follow tomorrow 08/05/2019 after PT and OT evaluations to assist with any new D/C planning needs that may arise. Shirley Caldwell RN Discharge Planning/Care Management Advanced directive, confirm from FAMILY Start: 08/04/19 13:32 Freq: Q24H Status: Active Protocol: Document 08/04/19 13:36 SFP (Rec: 08/04/19 13:36 SFP [id number]) Advance Directive, confirm on record Time 13:36 Person contacted Laura Copy received No CM Discharge Assessment Start: 08/04/19 16:40 Freq: Status: Active Protocol: Document 08/04/19 16:41 HS (Rec: 08/04/19 16:42 HS [id number]) Discharge Planning Assessment Assigned Manager Medical Device Shirley Caldwell RN DPOA/Assigned Designee Name Roberto Carlos Cook () Contact Information [phone] Advance Directives? Yes Advance Directives on File Yes History Provided By Patient,Family Member,Medical Record Has Patient been admitted in last 30 No days? Prior Living Arrangements House Household Members spouse Type of transporation used prior to Drives own vehicle admit Independent with ADL's Yes Is patient alert and oriented? Yes Caregiver for Another No DME Already Rented / Owned Elevated Toilet Seat,FWW / Walker,Cane Patient/Family Preference OP PT Therapy Discharge Plan Home Referrals Initiated None needed Whiteboard Updated in Patient Room with Yes name and ext. # of Manager Medical Device Review Status In Process Next Review Type Continued Stay Review Pre-Anesthesia Assessment Start: 01/10/20 11:45 Freq: Status: Active Protocol: Document 07/18/19 11:45 CAB (Rec: 07/18/19 12:34 CAB [id number]) Pre-Anesthesia Assessment Patient Information Reviewed Via Phone Assessment Assessment Completed With Patient Comment Done 06/29 Surgeon has per pt, not available at time of PAC assess Primary Care Provider Justyna Alexandra Seen Specialist in Last 12 Months Yes Specialist Seen Oncologist,Orthopedist, Urologist Primary Language [place] Preferred Language [place] Supervisor Intelligence Analyst Required No Height 177.8 cm Weight 78.018 kg Body Mass Index (BMI) 24.7 Hearing Ability Normal Visual Assist None Dentition Type Teeth, Natural Present Barriers to Learning None Other Aids No Hx Anesthesia Reactions No Hx Family Anesthesia Reaction No Hx Malignant Hyperthermia No Hx Blood Transfusions No Hx Blood Transfusion Reaction No Anesthesia Review Requested No Dish Up Person No alcohol intake former Smoking Status Current every day smoker Smoking cigarettes per day 2 how long ago did patient quit smoking Smoke a couple of cigarettes every morning Substance Use Type does not use Pain Present Pain Reported Musculoskeletal Symptoms Abnormal Gait,Back Pain, Difficulty Walking,Radiating Pain into Limb History of Falling (Recent or History of Yes ) Patient is completely paralyzed or No completely immobile Mental Status Oriented to own ability Comment Left foot brace for long distance Is patient on oxygen? No Does patient have CALDERON/SOB No Hx Sleep Apnea No CPAP/BIPAP use not prescribed Currently Taking a Beta Mane Yes: Atenolol Can You Climb a Flight of Stairs Without Yes SOB Hx Chest Pain No Hx SOB No Hx Syncope or Dizziness No Anti-Coagulant Therapy No Has a Red Mud Thickener Operator No Cardiac Testing No Hx Pacemaker/ICD No Pacemaker Rep Required? No Cardiac Clearance Received Not Applicable Diet Type At Home Regular dysphagia No Urinary Catheter Present No Hx Urinary Self Catheterization No Diabetes No: Pre-diabetic Hx Drug Resistant Organism No Presence of External or Internal Medical Yes: Bilat eye lens, hardware Devices right ankle, lumbar Have you traveled outside the [facility] States in the last 30 days? Marital Status Lives With spouse Prior Living Arrangements House Number of Floors (Floors) 3 or More Floors Support System Child/Children,Spouse Does the Patient Have Assistance After Yes Surgery Patient Discharge Plan Description Return Home Comment Pt advised overnight length of stay per surgeon Feels Safe in Current Environment Yes Been Physically Hurt or Threatened By a No Person in Current Environment Do you have thoughts of harming yourself None or others? Are you currently considering suicide? No Do you have a plan to hurt yourself or No Plan others? Do You Have Any Spiritual Beliefs That No May Affect Your HC Choices? Do You Have Any Cultural Practices That No May Affect Your HC Choices? Comment Marshall Who Can We Speak to About Patient's Care Family, friends Identifying Code for Release of Patient Declines to issue Information Health Care Proxy/Next of Kin Laura () Zafar (son) Health Care Proxy Phone Number Laura: [phone] Zafar: Emergency Contact Name Laura () Zafar (son) Emergency Contact Phone Number Laura: [phone] Zafar: Advance Directives? Yes Advance Directives on File Yes Power of Household Assistant Yes: Laura Cook Power of Household Assistant Name Laura Felipegary Power of Household Assistant PAC Instructions Durable medical equipment, Medications to take/avoid, Nasal antibiotic,No ETOH/ petroleum product on skin DOS, NPO,Pre-surgical wash,Sturdy shoes/comfortable clothes,Do not bring valuables and remove jewelry
--- NOTE | 2019-08-04 17:11 | PT.IIE ---
Current Diagnoses Other spondylosis with radiculopathy, lumbosacral region (08/04/19) Spinal stenosis, lumbar region without neurogenic claudication (08/04/19) Arthrodesis status (08/04/19) Surgery Performed Operation Date: 08/04/19 07:45 Actual Procedures p L2-3 TLIF, L3S1 HWR and re-insertion, L2-S1 PSF w/ instrumentation, L4-5 revision laminectomy - Zeny Gorman MD Surgical History (Last Updated 07/18/19 @ 12:32 by Hazel Somers, RN) History of ankle surgery (Acute) History of ankle surgery (Acute) History of bilateral cataract extraction (Acute) History of lumbar spinal fusion (Acute) History of lumbar spinal fusion (Acute 02/20/18) History of meniscectomy of left knee (Acute) History of vasectomy (Acute) S/P left rotator cuff repair (Acute) Medical History (Last Updated 07/18/19 @ 12:00 by Hazel Somers RN) HTN (hypertension) (Acute) Hx of migraines (Acute) Irregular heart beats (Acute) Kidney stone (Acute) Melanoma in situ of cheek (Acute) Numbness (Acute) Pre-diabetes (Acute) Prostate cancer (Acute ~09/2018) Physical Therapy Inpatient Evaluation/Re-Eval M1 PT/OT-IP Prior Functional Status Start: 08/04/19 13:46 Freq: NEEDED Status: Active Protocol: Document 08/04/19 16:46 AW (Rec: 08/04/19 17:11 AW [id number]) Medical Review Prior Functional Status Medical History Reviewed Yes Diet/Fluid Consistency Regular Communication WNL, no known deficits Mobility and Gait Pt was independent with all functional mobility. He states he could walk 500 feet to his mailbox and back 500 feet without AD. He admits to using a cane every now and then to increase his confidence but he mostly just carries it. Activities of Daily Living and IADL's Modified independent for dressing with homemade sock- aid tool. Independent showers and toileting. Prior Functional Level (Other details) Pt drives and golfs. Social History Household Members spouse Living Arrangements House Number of Floors (Floors) 3 or More Floors Number of Stairs To Enter/Railing? 2+3 RAS with left rail ascending. Once inside, he must go up 7 stairs with right rail ascending to access bedroom and bathroom. Home Environment Standard Height Toilet,Walk in Shower Home Equipment Front Wheel Walker,Straight Cane,Retail Grocer,Sock Aid Employment Status Self-Employed Additional Social History Comment Pt lives with his , Laura, in [facility] during the summer months and in [place] during the winter. He will be discharging to the home. Laura is basically home 29/01 and is able to provide assistance with no limitation. M2 PT-IP Current Condition Start: 08/04/19 13:46 Freq: NEEDED Status: Active Protocol: Document 08/04/19 16:46 AW (Rec: 08/04/19 17:11 AW [id number]) Physical Therapy Current Condition Current Condition Evaluation Date 08/04/19 Treatment Diagnosis L2-S1 TLIF, impaired mobility Onset Date 08/04/19 Precautions Lumbar Precautions Log Roll,No Twisting,Limit Bending,Lifting Restriction of 10 lbs,Gait Belt above Incisional Area Brace Pt uses a dynamic AFO for DF assist on LLE Weight Bearing Status Weight Bearing Status Full Weight Bearing M3 PT-IP Subjective Start: 08/04/19 13:46 Freq: NEEDED Status: Active Protocol: Document 08/04/19 16:46 AW (Rec: 08/04/19 17:11 AW [id number]) Subjective Physical Therapy Visit Type Type Initial Evaluation Visit Start Time 15:40 Visit Stop Time 16:14 Total Visit Minutes 34 Notes Pt's present throughout evaluation Number of ELECTRIC CLOCK MECHANIC Visits 0 Physical Therapy Visit Comments Patient Comments Pt feeling antsy and ready to mobilize Patient Goals Pt hopes to be able to return to golf within 3 months Therapy Pain Assessment Pain When Pain Assessed During Mobility Pain Present Pain Present Pain Reported Location Back Intensity 5 Scale Used 5/10 at rest; unchanged with mobility Pain Management Techniques Re-positioning,Timing of Activity with Medications M4 PT-IP Mobility and Gait Start: 08/04/19 13:46 Freq: NEEDED Status: Active Protocol: Document 08/04/19 16:46 AW (Rec: 08/04/19 17:11 AW [id number]) PT-Bed Mobility Assessment Rolling Type of Rolling Log Rolling Level of Assist Contact Guard Assistance Supine to Sit Supine to Sit Contact Guard Assistance Sit to Supine Sit to Supine Contact Guard Assistance,1 Person Assistance Scooting Scooting to Edge of Bed Standby Assistance Scooting Up and Down in Bed Independent PT-Transfer Assessment Sit to and From Stand Sit to and from Stand Contact Guard Assistance,1 Person Assistance,Use of Upper Extremities Equipment Transfer Assistive Device Gait Belt,Front Wheeled Walker Orthotic/Prosthetic Devices or Brace: No Transfers Transfer Destination Bed Transfer Technique pt ambulated with FWW Transfer Ability Level of Assist Contact Guard Assistance,1 Person Assistance,Use of Upper Extremities Comments Mobility Comments Pt encountered reclined in bed . He completed log roll to his right side CGA and no cues for sequencing. Pt was able to sit EOB with UE support for LE MMT. He stood with good attention to precautions using FWW CGA and ambulated in the halls before returning to right side of bed. He required cues to avoid twisting during log roll back to supine but was able to elevate his legs CGA. Pt was repositioned in the bed with call light and table within reach, chair alarm armed, and at bedside. Gait Assessment Gait Gait Assistance Required: Standby Assistance Distance (Feet) 150 Able to Maintain Weight Bearing Status Yes During Gait Assistive Devices Assistive Device Gait Belt,Front Wheeled Walker Orthotic/Prosthetic Devices or Brace: No Gait Deviations General Gait Pattern Antalgic,Decreased Stride Length,Decreased Feet Clearance,Flexed Trunk Factors Limiting Gait Function Factors Limiting Gait Function Decreased Activity Tolerance, Decreased Strength,Pain Comments Gait Comments Pt ambulated in the halls with FWW SBA with good attention to back precautions and safe use of AD. He walked 150 feet without need for a break and without increase in pain. Stair Climbing Assessment Comments Stair Climbing Comments Not assessed. PT-Balance Assessment Sitting Balance and Reactions Static Sitting Balance Ability Good Dynamic Sitting Balance Ability Good Standing Balance and Reactions Static Standing Balance Ability Good Dynamic Standing Balance Ability Good Device Used FWW M5 PT-IP Objective Assessments Start: 08/04/19 13:46 Freq: NEEDED Status: Active Protocol: Document 08/04/19 16:46 AW (Rec: 08/04/19 17:11 AW [id number]) Orientation Orientation/Cognition Level of Alertness Alert Orientation Name,Day of Week,Place, Situation Language Function Ability No Deficits Noted Safety Awareness Understands Safety Issues Memory Description No Deficits Noted Gross Range of Motion Upper Extremity ROM Assessment Within Functional Limits Lower Extremity ROM Assessment Within Functional Limits Strength Upper Extremity Strength Assessment Within Functional Limits Lower Extremity Strength Assessment Bilaterally Impaired Hip 4/5 Knee 5/5 Ankle 4/5 Coordination Assessment Gross Coordination Gross Coordination WNL Sensation Assessment Sensation Gross Sensation Right LE Impaired,Left LE Impaired Light Touch Impaired Sensation Description Numbness Comments Sensation Comments Pt endorses peripheral neuropathy affective bilateral feet since before chemotherapy but definitely aggravated by same. Neuropathy affects sensation of bilateral feet and likely contributes to left foot drop for which he often wears a dynamic AFO with DF assist. Muscle Tone Muscle Tone WNL Yes M6 PT-IP Treatment Start: 08/04/19 13:46 Freq: NEEDED Status: Active Protocol: Document 08/04/19 16:46 AW (Rec: 08/04/19 17:11 AW [id number]) Physical Therapy Treatment Education Education Provided Precautions,Weight Bearing Status,Post-Op Packet,Safety Other Treatments Other Treatment Performed Provided education on role of PT, plan of care, spinal precautions, and safe use of FWW. M7 PT-IP Assessment and Plan Start: 08/04/19 13:46 Freq: NEEDED Status: Active Protocol: Document 08/04/19 16:46 AW (Rec: 08/04/19 17:11 AW [id number]) PT Summary Assessment and Plan Potential Rehabilitation Potential Excellent Status of Condition at Evaluation Evolving Summary Impairments Pain,ROM,Strength,Sensation, Bed Mobility,Transfers,Gait, Activity Tolerance Assessment Summary Sarabjit is a 68 yo man with history of previous spine surgeries, malignant melanoma, and prostate cancer. His last round of chemotherapy ended in April 2019. At baseline, he mobilized without AD but often with a dynamic AFO on the left LE for dorsiflexion assist to address foot drop. On evaluation, he required up to CGA with all mobility and reported no increase in pain with 150 feet ambulation using FWW. PT recommends discharge to home with spouse assist when medically cleared. He would also benefit from outpatient PT to optimize return to prior level of function. Goals Bed Mobility Goal Independent Transfer Goal Independent Gait Goal Independent Gait Distance 300 Other Goals - up/down 7 steps with right rail ascending SBA - up/down 3 steps with left rail ascending SBA Days to Meet Goals 2 Frequency of Treatment Frequency Of Treatment Twice a Day Treatment Plan Physical Therapy Treatment Plan Bed Mobility Training,Transfer Training,Gait Training, Therapeutic Exercise,Balance Retraining,Post Op Education, Discharge Planning,Hot or Cold Pack,Neuromuscular Re-ed, Coordination Retraining,Manual Therapy Other Recommendations and Next Treatment assess gait without AD or Focus least restrictive AD; assess safety on stairs; Recommendations To Nursing Amount of Assist Needed Standby Assistance Discharge Recommendations PT Discharge Recommendations Home with Assistance, Outpatient PT Transportation Needs at Discharge Private Vehicle
[2019-08-04] MEDS: OXYCODONE IR 10 MG TABLET PO (20:42)
[2019-08-04] MEDS: GABAPENTIN 300 MG CAPSULE 900 MG PO (20:43)
[2019-08-04] MEDS: DOCUSATE 100 MG CAPSULE PO (20:43)
[2019-08-04] MEDS: ACETAMINOPHEN 325 MG TABLET 650 MG PO (20:43)
[2019-08-04] MEDS: TRAZODONE 50 MG TABLET PO (20:52)
--- NOTE | 2019-08-04 22:47 | PC.NURSE ---
Evening note: Sarabjit resting in bed, VS stable. Has been up to recliner for a short time, new dunia bed now in room as he reported other bed was very uncomfortable. Reports better pain relief & now dozing after having Oxycodone 10 mg, as earlier could not get pain under a 7. Ice pack to back. I outlined 2 small spots of shadow drainage on surgical drsg. Logrolling reinforced & encouraged tonight, needs some assist, mostly able to get out of bed & transfer to chair on his own. Assisted him to side-lie on right side with pillow between knees which he said helped relieve the back pain right away. Fall precautions in place/fww/gait belt/bed alarm, instructed to call staff if has any needs/concerns.
[2019-08-04] MEDS: HYDROMORPHONE 0.5 MG INJ IV (23:28)
[2019-08-05] VITALS (9 sets, daily range): BP systolic 101–119; BP diastolic 64–78; PULSE 69–81; RESP 16–18; TEMP 36.5–37.6; O2SAT 94–99
[2019-08-05] MEDS: CLINDAMYCIN 900 MG/50 ML PIGGYBACK 50 MG IV (00:10)
[2019-08-05] MEDS: OXYCODONE IR 10 MG TABLET PO ×7 (00:15→23:15)
[2019-08-05] MEDS: HYDROMORPHONE 0.5 MG INJ IV ×3 (03:14→19:57)
[2019-08-05] MEDS: ACETAMINOPHEN 325 MG TABLET 650 MG PO ×2 (03:19→09:41)
[2019-08-05] MEDS: PANTOPRAZOLE 20 MG TABLET PO (06:09)
[2019-08-05] MEDS: PROCHLORPERAZINE 5 MG TABLET PO (06:09)
[2019-08-05 06:21] LABS: Hematocrit 33.3 % (41-53); Hemoglobin 11.4 g/dL (13.5-17.5)
--- NOTE | 2019-08-05 07:56 | PM.PN.1 ---
Subjective Subjective Date Patient Seen: 08/05/19 Time Patient Seen: 07:56 Interval history: Patient is POd#1 s/p L2-3, L3-4, L4-5 HWR and [address]IF with Dr[address] Gorman. Pain has been moderate but well controlled with medication. He has mobilized with PT. Novak removed this morning, has not voided yet. Denies any chest pain, or shortness of breath. Did note some lightheadedness with mobility yesterday. Exam Vital Signs (past 8 hours): - 08/05/19 00:10 08/05/19 05:20 08/05/19 06:09 Temperature 98.6 F 98.6 F Pulse Rate 74 71 69 Respiratory Rate 18 18 Blood Pressure 119/74 117/78 117/78 Pulse Oximetry 99 97 Oxygen Delivery Method Room Air Oxygen Flow Rate 0 Narrative Exam Narrative: 68 year old male resting in bed. Alert and oriented in no acute distress. Dressing over lumbar spine is intact with several clearly demarcated areas of shadow drainage. 5/5 BLE. Calves soft, compressible. Objective Labs Result Diagrams: 08/05/19 05:37 Labs: Laboratory Results - last 24 hr 08/05/19 05:37 Hgb 11.4 L Hct 33.3 L Assessment & Plan Assessment & Plan narrative: Patient progressing as expected. Has mobilized with PT, will need stair training prior to discharge. Continue present pain management. History of prostate cancer on Flomax. Will need to void appropriately prior to discharge. Dressing changed today to Coversite. Possible discharge to home today or tomorrow pending above. Quality VTE Deep Vein Thrombosis/Pulmonary Embolism Present on Admission: No
--- NOTE | 2019-08-05 08:04 | PT.IPTN ---
Current Diagnoses Other spondylosis with radiculopathy, lumbosacral region (08/04/19) Spinal stenosis, lumbar region without neurogenic claudication (08/04/19) Arthrodesis status (08/04/19) Surgery Performed Operation Date: 08/04/19 07:45 Actual Procedures p L2-3 TLIF, L3S1 HWR and re-insertion, L2-S1 PSF w/ instrumentation, L4-5 revision laminectomy - Zeny Gorman MD Physical Therapy Treatment Note M2 PT-IP Current Condition Start: 08/04/19 13:46 Freq: NEEDED Status: Active Protocol: Document 08/04/19 16:46 AW (Rec: 08/04/19 17:11 AW [id number]) Physical Therapy Current Condition Current Condition Evaluation Date 08/04/19 Treatment Diagnosis L2-S1 TLIF, impaired mobility Onset Date 08/04/19 Precautions Lumbar Precautions Log Roll,No Twisting,Limit Bending,Lifting Restriction of 10 lbs,Gait Belt above Incisional Area Brace Pt uses a dynamic AFO for DF assist on LLE Weight Bearing Status Weight Bearing Status Full Weight Bearing M3 PT-IP Subjective Start: 08/04/19 13:46 Freq: NEEDED Status: Active Protocol: Document 08/05/19 07:41 SP (Rec: 08/05/19 08:48 SP [id number]) Subjective Physical Therapy Visit Type Type Treatment Note Visit Start Time 07:40 Visit Stop Time 08:04 Total Visit Minutes 24 Number of SWIMMING POOL PLASTERER HELPER Visits 1 Physical Therapy Visit Comments Patient Comments Pt willing to work with PT this am. Pt reported pain 6/10 pre PT, over the night was up to 8/10 toward tail end of pain medication dose time, better this am. Patient Goals Pt ready to go home with later today, wanting to return to golf within 3 months. Therapy Pain Assessment Pain When Pain Assessed At Rest Pain Present Pain Present Pain Reported Location Back Intensity 6 Scale Used 6-7/10 supine, 5/10 during walking Pain Management Techniques Re-positioning,Timing of Activity with Medications M4 PT-IP Mobility and Gait Start: 08/04/19 13:46 Freq: NEEDED Status: Active Protocol: Document 08/05/19 07:41 SP (Rec: 08/05/19 08:48 SP [id number]) PT-Bed Mobility Assessment Rolling Type of Rolling Log Rolling Level of Assist Standby Assistance Supine to Sit Supine to Sit Standby Assistance,Bedrails Sit to Supine Sit to Supine Standby Assistance,Bedrails Scooting Scooting to Edge of Bed Independent Scooting Up and Down in Bed Independent PT-Transfer Assessment Sit to and From Stand Sit to and from Stand Standby Assistance,Use of Upper Extremities Equipment Transfer Assistive Device Gait Belt,Straight Cane,Front Wheeled Walker Orthotic/Prosthetic Devices or Brace: No Transfers Transfer Destination Chair Transfer Technique pt ambulated with FWW Transfer Ability Level of Assist Standby Assistance,Use of Upper Extremities Comments Mobility Comments Pt was laying in bed when arrived. Pt completed log roll to R with HOB flat contact use of bed rails, cued for LUE cross over body while bent knees rotate trunk to R for improved maintaining spinal precautions with improvement in demonstration SBA. Pt was independent with scooting to EOB using BUE. Pt sat EOB with light contact UE support. Completed sit <> stand using FWW SBA, cue x1 for at least 1 hand placement to push from bed followed through rest of time, good reaching back prior to sitting after step pivot to chair with good spinal alignment. Pt pivoted using FWW and after returned from walk using SPC stable balance and proper use of AD SBA. Pt was laying down in bed with call light and all needs in reach when left. Gait Assessment Gait Gait Assistance Required: Standby Assistance Distance (Feet) 220 Able to Maintain Weight Bearing Status Yes During Gait Assistive Devices Assistive Device Gait Belt,Straight Cane,Front Wheeled Walker Orthotic/Prosthetic Devices or Brace: No Gait Deviations General Gait Pattern Antalgic,Decreased Feet Clearance Factors Limiting Gait Function Factors Limiting Gait Function Decreased Strength,Pain Comments Gait Comments Pt ambulated chair to stairs using FWW and back using SPC approx 230 ft SBA. Pt reported ususally has more of a foot drop on L and wear support but doing well today with foot clearance, no cues needed, normal stride length, required sBA for safety when noted little unsteady and shaky in BUE and lateral trunk initially during gait to stairs but improved with distance, patient commented shaky is due to the pain. No LOB or deviations demonstrated . Stair Climbing Assessment Evaluation Level of Assist On Stairs Standby Assistance,Contact Guard Assistance Devices Stair Climbing Assistive Devices Straight Cane,Left Railing Technique/Endurance Stair Climbing Direction Ascend and Descend Stair Climbing Technique Step Over Step Number of Steps Climbed 3 Stair Climbing Set # Repetitions (reps) 4 Comments Stair Climbing Comments Pt was able to complete 12 stair mgt step over step using L HR and SPC in RUE 3 steps x3, then R HR and SPC in LUE 3 steps to assimulate enter home and small flights in house to get to each of 3 floors. Pt required SBA with cuing x1 initially for SPC placement stair ahead during ascending using L HR and SPC RUE (ok descending) to decrease R lateral lean and maintain spinal upright with good follow through rest of sets, stable balance. PT-Balance Assessment Sitting Balance and Reactions Static Sitting Balance Ability Good Dynamic Sitting Balance Ability Good Standing Balance and Reactions Static Standing Balance Ability Good Dynamic Standing Balance Ability Good Device Used FWW M5 PT-IP Objective Assessments Start: 08/04/19 13:46 Freq: NEEDED Status: Active Protocol: Document 08/04/19 16:46 AW (Rec: 08/04/19 17:11 AW [id number]) Orientation Orientation/Cognition Level of Alertness Alert Orientation Name,Day of Week,Place, Situation Language Function Ability No Deficits Noted Safety Awareness Understands Safety Issues Memory Description No Deficits Noted Gross Range of Motion Upper Extremity ROM Assessment Within Functional Limits Lower Extremity ROM Assessment Within Functional Limits Strength Upper Extremity Strength Assessment Within Functional Limits Lower Extremity Strength Assessment Bilaterally Impaired Hip 4/5 Knee 5/5 Ankle 4/5 Coordination Assessment Gross Coordination Gross Coordination WNL Sensation Assessment Sensation Gross Sensation Right LE Impaired,Left LE Impaired Light Touch Impaired Sensation Description Numbness Comments Sensation Comments Pt endorses peripheral neuropathy affective bilateral feet since before chemotherapy but definitely aggravated by same. Neuropathy affects sensation of bilateral feet and likely contributes to left foot drop for which he often wears a dynamic AFO with DF assist. Muscle Tone Muscle Tone WNL Yes M6 PT-IP Treatment Start: 08/04/19 13:46 Freq: NEEDED Status: Active Protocol: Document 08/05/19 07:41 SP (Rec: 08/05/19 08:48 SP [id number]) Physical Therapy Treatment Exercises Exercises Ankle Pumps,Gluteal Sets,Quad Sets,Heel Slides Education Education Provided Precautions,Safety Other Treatments Other Treatment Performed Instructed trans ab activation and modified bridging to assist bed mobility and spinal stabililzation. M7 PT-IP Assessment and Plan Start: 08/04/19 13:46 Freq: NEEDED Status: Active Protocol: Document 08/05/19 07:41 SP (Rec: 08/05/19 08:48 SP [id number]) PT Summary Assessment and Plan Potential Rehabilitation Potential Excellent Status of Condition at Evaluation Evolving Summary Impairments Pain,ROM,Strength,Sensation, Bed Mobility,Transfers,Gait, Activity Tolerance Assessment Summary Pt was able to complete supine <> sitting performing log roll to R with cue x1 for L UE cross body when B knees roll to R for improved spinal alignment precautions HOB flat , used bed rail for contact support then pressing up from bed. Pt was able to complete sit to stand, step pivot tranfer to chair, 1 cue for pressing up from bed good follow through rest of time. Pt was increase distance in gait usign fWW and SPC SBA, demonstrated little shaky BUE and lateral trunk initially stating from pain but improved and went away as distance progressed to stairs, good stride and foot clearance. Pt ascend and descend 12 stairs using LHR and SPC, RHR and SPC to assimulate enterance of home and inside 2 flights of stairs SBA with cue x1 for SPC placement step ahead to decrease slight R trunk lateral lean, good demonstration rest of sets, stable with no LOB or deviations. SWIMMING POOL PLASTERER HELPER recommends discharge to home with spouse assist when medically cleared. He would also benefit from outpatient PT to optimize return to prior level of function. Goals Bed Mobility Goal Independent Transfer Goal Independent Gait Goal Independent Gait Distance 300 Other Goals - up/down 7 steps with right rail ascending SBA - up/down 3 steps with left rail ascending SBA Days to Meet Goals 2 Frequency of Treatment Frequency Of Treatment Twice a Day Treatment Plan Physical Therapy Treatment Plan Bed Mobility Training,Transfer Training,Gait Training, Therapeutic Exercise,Balance Retraining,Post Op Education, Discharge Planning,Hot or Cold Pack,Neuromuscular Re-ed, Coordination Retraining,Manual Therapy Other Recommendations and Next Treatment assess gait without AD or Focus least restrictive AD Recommendations To Nursing Amount of Assist Needed 1 Person Assist Discharge Recommendations PT Discharge Recommendations Home with Assistance, Outpatient PT Transportation Needs at Discharge Private Vehicle
--- NOTE | 2019-08-05 09:03 | OT.IP.EVAL ---
Current Diagnoses Other spondylosis with radiculopathy, lumbosacral region (08/04/19) Spinal stenosis, lumbar region without neurogenic claudication (08/04/19) Arthrodesis status (08/04/19) Surgery Performed Operation Date: 08/04/19 07:45 Actual Procedures p L2-3 TLIF, L3S1 HWR and re-insertion, L2-S1 PSF w/ instrumentation, L4-5 revision laminectomy - Zeny Gorman MD Past Medical History (Last Updated 07/18/19 @ 12:00 by Hazel Somers RN) HTN (hypertension) (Acute) Hx of migraines (Acute) Irregular heart beats (Acute) Kidney stone (Acute) Melanoma in situ of cheek (Acute) Numbness (Acute) Pre-diabetes (Acute) Prostate cancer (Acute ~09/2018) Surgical History (Last Updated 07/18/19 @ 12:32 by Hazel Somers RN) History of ankle surgery (Acute) History of ankle surgery (Acute) History of bilateral cataract extraction (Acute) History of lumbar spinal fusion (Acute) History of lumbar spinal fusion (Acute 02/20/18) History of meniscectomy of left knee (Acute) History of vasectomy (Acute) S/P left rotator cuff repair (Acute) Occupational Therapy Inpatient Evaluation/Re-Eval M1 PT/OT-IP Prior Functional Status Start: 08/05/19 12:28 Freq: NEEDED Status: Active Protocol: Document 08/05/19 09:03 [facility] (Rec: 08/05/19 12:48 [facility] [id number]) Medical Review Prior Functional Status Medical History Reviewed Yes Diet/Fluid Consistency Regular Communication WNL, no known deficits Mobility and Gait Pt was independent with all functional mobility. He states he could walk 500 feet to his mailbox and back 500 feet without AD. He admits to using a cane every now and then to increase his confidence but he mostly just carries it. Activities of Daily Living and IADL's Modified independent for dressing with homemade sock- aid tool. Independent showers and toileting. Prior Functional Level (Other details) Pt drives and golfs. Social History Household Members spouse Living Arrangements House Number of Floors (Floors) 3 or More Floors Number of Stairs To Enter/Railing? Pt states 2 steps with left rail going up and then 8 ft sloped walkway and then 4 steps with bilateral rails. Another 7 steps with left rail to the main level. ^ more steps with right rail to the bedrooms. Home Environment Standard Height Toilet,Walk in Shower Home Equipment Front Wheel Walker,Straight Cane,Cutting Table Operator First,Sock Aid Employment Status Self-Employed Additional Social History Comment Pt lives with his , Laura, in [facility] during the summer months and in [place] during the winter. He will be discharging to the home. Laura is basically home 29/01 and is able to provide assistance with no limitation. M2 OT-IP Current Condition Start: 08/05/19 12:28 Freq: Status: Active Protocol: Document 08/05/19 09:03 [facility] (Rec: 08/05/19 12:48 [facility] [id number]) Occupational Therapy Current Condition Current Condition Evaluation Date 08/05/19 Treatment Diagnosis S/p L2-3, L3-4, L4-5 HWR and TLIF Diagnosis Onset Date 08/04/19 Post Operative Precautions Lumbar Precautions Log Roll,No Twisting,Limit Bending,Lifting Restriction of 10 lbs,Gait Belt above Incisional Area Weight Bearing Status Weight Bearing Status Weight Bear as Tolerated M3 OT- IP Subjective and Pain Start: 08/05/19 12:28 Freq: Status: Active Protocol: Document 08/05/19 09:03 [facility] (Rec: 08/05/19 12:48 [facility] [id number]) OT- Subjective Occupational Therapy Visit Type Type Initial Evaluation Visit Start Time 09:03 Visit Stop Time 09:25 Total Visit Minutes 22 Occupational Therapy Visit Comments Patient Comments Pt cooperative and willing to work with OT. Patient/Caregiver Goals To go home. OT Pain Assessment Pain When Pain Assessed At Rest Pain Present Pain Present Pain Reported Location Back Intensity 5 Scale Used Numeric (1 - 10) M4 OT- IP ADL's Start: 08/05/19 12:28 Freq: Status: Active Protocol: Document 08/05/19 09:03 [facility] (Rec: 08/05/19 12:48 [facility] [id number]) OT [id number] Comments OT Self-Feeding Comments Not at meal time. OT ADL-Grooming General Evaluation Grooming Ability Standby Assistance Areas Needing Assistance Retrieving/Set-up of Grooming Items Comments OT Grooming Comments Edcuated for proper body mechanics to lean to the sink to spit or use of cup to spit into. OT ADL-Oral Care General Eval Oral Care Ability Independent OT ADL-Dressing Comments OT Dressing Comments Pt not wanting to get dressed at this time. Pt has all LB dressing equipment from prior back surgeries and able to state good understanding for use. OT ADL-Toileting Comments OT Toileting Comments Pt able to stand to urinate, educated use of FWW over the toilet. Pt states at home leans to the left on the counter and able to reach to wipe. Other option educated to pt is to stand and wipe. OT ADL-Bathing Comments OT Bathing Comments Pt wanting to shower at home. Suggested use of shower chair at home and have assist him to step into the tub/ shower. M5 OT- IP IADL's Start: 08/05/19 12:28 Freq: Status: Active Protocol: Document 08/05/19 09:03 [facility] (Rec: 08/05/19 12:48 [facility] [id number]) OT-Instrumental Activities of Daily Living Home Safety Awareness Home Safety Comments Stressed to pt to have assist for IADl needs and not get back to doing yard work until cleared by his surgeon. Pt states good understanding will not be driving initially. M6 OT- IP Functional Cognition Start: 08/05/19 12:28 Freq: Status: Active Protocol: Document 08/05/19 09:03 [facility] (Rec: 08/05/19 12:48 [facility] [id number]) Cognitive Factors Limiting Selfcare Function Cognitive Ability Level of Alertness Alert Patient Orientation Name,Age,Birthday,Month,Date, Year,Day of Week,Place, Situation Attention Span Ability Capable of Focused Attention, Capable of Sustained Attention Ability to Follow Commands Able to Follow Multi-Step Commands Memory Description No Deficits Noted Safety Awareness Underestimates Need for Assistance Cognitive Comments Cognitive Assessment Comments Pt needing vc to keep FWW in front of him when using the FWW. Pt otherwise have good understanding for back precautions and how to incorporate during ADL needs. OT- Vision and Hearing OT- Hearing Assessment OT- Hearing Assessment WFL OT- Vision Assessment Visual Acuity WFL M7 OT- IP Mobility and Balance Start: 08/05/19 12:28 Freq: Status: Active Protocol: Document 08/05/19 09:03 [facility] (Rec: 08/05/19 12:48 [facility] [id number]) OT- Bed Mobility Assessment Rolling Type of Rolling Roll to Right Supine to Sit Supine to Sit Assist Standby Assistance Scooting Scooting to Edge of Bed Standby Assistance OT-Transfer Assessment Sit to and From Stand Sit to and from Stand Standby Assistance Transfers Transfer Ability Standby Assistance Technique Transfer Destination Bed Devices Transfer Assistive Devices Gait Belt,Front Wheeled Walker Comments Mobility Comments SBA for bed mobility , and able to walk to the from the bathroom, sink and back to bed with FWW and SBA. OT- Balance Assessment Sitting Balance and Reactions Static Sitting Balance Ability Normal Dynamic Sitting Balance Ability Good Standing Balance and Reactions Static Standing Balance Ability Good M8 OT- IP Objective Assessments Start: 08/05/19 12:28 Freq: Status: Active Protocol: Document 08/05/19 09:03 [facility] (Rec: 08/05/19 12:48 [facility] [id number]) OT Gross Range of Motion Upper Extremity Range of Motion Assessment Within Functional Limits OT Strength Upper Extremity Strength Assessment Within Functional Limits M9 OT- IP Assessment and Plan Start: 08/05/19 12:28 Freq: Status: Active Protocol: Document 08/05/19 09:03 [facility] (Rec: 08/05/19 12:48 [facility] [id number]) OT Summary Assessment and Plan Potential Rehabilitation Potential Good Analytic Complexity at Evaluation Low Summary OT Impairments Pain,Balance,Functional Mobility,Bathing Progress Towards Goals Progressing Toward Goals Assessment Summary Pt low complexity and main barrier are stairs, would benefit from shower chair at home and to assist for showering and IADL needs. Pt to have assist as needed at home. Goals Shower Transfer Goal Standby Assistance Patient/Caregiver Education Goal Demonstrate Post-Op Precautions,Caregiver Independent Assisting Patient Days to Meet Goals 1 Frequency of Treatment Frequency Of Treatment Once a Day Treatment Plan OT Treatment Plan ADL Training,Functional Mobility,Patient/Family Education,Discharge Planning Other Treatment Recommendations and Next Shower if pt still here in the Treatment Focus morning. Discharge Recommendations OT Discharge Recommendations Home with Assistance Home Equipment Needs shower chair, [facility]
[2019-08-05] MEDS: DOCUSATE 100 MG CAPSULE PO ×2 (09:40→20:31)
[2019-08-05] MEDS: TAMSULOSIN 0.4 MG CAPSULE PO (09:40)
[2019-08-05] MEDS: GABAPENTIN 300 MG CAPSULE PO (09:41)
[2019-08-05] MEDS: hydrOXYzine pamoate 25 MG CAPSULE PO (11:02)
--- NOTE | 2019-08-05 14:10 | PT.IPTN ---
Current Diagnoses Other spondylosis with radiculopathy, lumbosacral region (08/04/19) Spinal stenosis, lumbar region without neurogenic claudication (08/04/19) Arthrodesis status (08/04/19) Surgery Performed Operation Date: 08/04/19 07:45 Actual Procedures p L2-3 TLIF, L3S1 HWR and re-insertion, L2-S1 PSF w/ instrumentation, L4-5 revision laminectomy - Zeny Gorman MD Physical Therapy Treatment Note M2 PT-IP Current Condition Start: 08/04/19 13:46 Freq: NEEDED Status: Active Protocol: Document 08/04/19 16:46 AW (Rec: 08/04/19 17:11 AW [email or web address]) Physical Therapy Current Condition Current Condition Evaluation Date 08/04/19 Treatment Diagnosis L2-S1 TLIF, impaired mobility Onset Date 08/04/19 Precautions Lumbar Precautions Log Roll,No Twisting,Limit Bending,Lifting Restriction of 10 lbs,Gait Belt above Incisional Area Brace Pt uses a dynamic AFO for DF assist on LLE Weight Bearing Status Weight Bearing Status Full Weight Bearing M3 PT-IP Subjective Start: 08/04/19 13:46 Freq: NEEDED Status: Active Protocol: Document 08/05/19 13:35 SP (Rec: 08/05/19 14:47 SP [email or web address]) Subjective Physical Therapy Visit Type Type Treatment Note Visit Start Time 13:35 Visit Stop Time 14:10 Total Visit Minutes 35 Notes Pt's arrived end of tx. Number of DIRECTOR [employer] ENFORCEMENT Visits 2 Physical Therapy Visit Comments Patient Comments Pt willing to work with PT stated feels warm and nursing stated has slight elevated temp. Pt stated not ready to go home today and pain level went up to 7/10 around lunch time and just took more pain meds to help. Patient Goals Wanted to get up and move around. Therapy Pain Assessment Pain When Pain Assessed At Rest Pain Present Pain Present Pain Reported Location Back Intensity 5 Scale Used 5/10 at rest, same with mobility Pain Management Techniques Apply Cold,Re-positioning, Timing of Activity with Medications M4 PT-IP Mobility and Gait Start: 08/04/19 13:46 Freq: NEEDED Status: Active Protocol: Document 08/05/19 13:35 SP (Rec: 08/05/19 14:47 SP [email or web address]) PT-Bed Mobility Assessment Supine to Sit Supine to Sit Standby Assistance,Head of Bed Elevated,Bedrails Scooting Scooting to Edge of Bed Independent PT-Transfer Assessment Sit to and From Stand Sit to and from Stand Standby Assistance,Use of Upper Extremities Equipment Transfer Assistive Device Gait Belt,Straight Cane Orthotic/Prosthetic Devices or Brace: No Transfers Transfer Technique Pt ambulated with SPC Transfer Ability Level of Assist Standby Assistance,Use of Upper Extremities Comments Mobility Comments Pt was laying in bed when arrived wanting to get up and go for a walk. Pt complete elevated (50deg) supine to sitting to sit EOB SBA using bed rail support with good spinal precautions. Pt able to sit EOB without UE support. Sit to stand from EOB using SPC SBA and maintaining good spinal alignment. Pt was sitting in chair (after walk and dynamic sitting/standing activities) when left with 4 pillow support vertically and cold pack to LS for assist pain control with alarm donned and call light/ needs within reach. Gait Assessment Gait Gait Assistance Required: Standby Assistance Distance (Feet) 666 Able to Maintain Weight Bearing Status Yes During Gait Assistive Devices Assistive Device None,Gait Belt,Straight Cane Orthotic/Prosthetic Devices or Brace: No Gait Deviations General Gait Pattern Antalgic Factors Limiting Gait Function Factors Limiting Gait Function Decreased Strength,Pain,Poor Balance Comments Gait Comments Pt ambulated initially consistantly with SPC RUE and patterning with LLE step over step patterning BLE, patient progressed to intermittent SPC contact as distance progressed, noted occasional R lateral increased wt shift stance time over RLE but corrected with SPC contact with not much WB into it. Required SBA for safety. Recommended continue use of SPC for safety with balance, verbal agreement. Stair Climbing Assessment Comments Stair Climbing Comments Not performed this session. PT-Balance Assessment Sitting Balance and Reactions Static Sitting Balance Ability Normal Dynamic Sitting Balance Ability Good Standing Balance and Reactions Static Standing Balance Ability Good Dynamic Standing Balance Ability Fair Device Used SPC Comments Other Balance Tests/Deviations/Treatment NBOS feet together with no AD : head turns, vertical and EO fine, EC sways self recovery but no LOB 10 sec, attempted tandem without able to maintain foot position, stagger stance needed SPC to get into position and unable to maintain with out UE support so stopped. M5 PT-IP Objective Assessments Start: 08/04/19 13:46 Freq: NEEDED Status: Active Protocol: Document 08/04/19 16:46 AW (Rec: 08/04/19 17:11 AW [id number]) Orientation Orientation/Cognition Level of Alertness Alert Orientation Name,Day of Week,Place, Situation Language Function Ability No Deficits Noted Safety Awareness Understands Safety Issues Memory Description No Deficits Noted Gross Range of Motion Upper Extremity ROM Assessment Within Functional Limits Lower Extremity ROM Assessment Within Functional Limits Strength Upper Extremity Strength Assessment Within Functional Limits Lower Extremity Strength Assessment Bilaterally Impaired Hip 4/5 Knee 5/5 Ankle 4/5 Coordination Assessment Gross Coordination Gross Coordination WNL Sensation Assessment Sensation Gross Sensation Right LE Impaired,Left LE Impaired Light Touch Impaired Sensation Description Numbness Comments Sensation Comments Pt endorses peripheral neuropathy affective bilateral feet since before chemotherapy but definitely aggravated by same. Neuropathy affects sensation of bilateral feet and likely contributes to left foot drop for which he often wears a dynamic AFO with DF assist. Muscle Tone Muscle Tone WNL Yes M6 PT-IP Treatment Start: 08/04/19 13:46 Freq: NEEDED Status: Active Protocol: Document 08/05/19 13:35 SP (Rec: 08/05/19 14:47 SP [email or web address]) Physical Therapy Treatment Education Education Provided Precautions,Safety Other Treatments Other Treatment Performed standing march with and without SPC, seated EOB HRTR challenging noted trunk F/B sway to complete, mini march tolerable ROM no UE support needed. M7 PT-IP Assessment and Plan Start: 08/04/19 13:46 Freq: NEEDED Status: Active Protocol: Document 08/05/19 13:35 SP (Rec: 08/05/19 14:47 SP [email or web address]) PT Summary Assessment and Plan Potential Rehabilitation Potential Excellent Status of Condition at Evaluation Evolving Summary Impairments Pain,ROM,Strength,Sensation, Bed Mobility,Transfers,Gait, Activity Tolerance Assessment Summary See mobility, ther ex and dynamic balance activities performed. Bed mobility, sit to stand, gait SBA using SPC. Recommended walking with nursing assistants again later today to keep up strength. Pt would benefit one more day skilled PT to work on strength , endurance and complete caregiver training including stair mgt with prior to DC. arrived end of tx this afternoon. [employer] recommends discharge to home with spouse assist when medically cleared. He would also benefit from outpatient PT to optimize return to prior level of function. Goals Bed Mobility Goal Independent Transfer Goal Independent Gait Goal Independent Gait Distance 300 Other Goals Caregiver training including- up/down 7 steps with right rail ascending SBA - up/down 3 steps with left rail ascending SBA -gait FWW/SPC Days to Meet Goals 2 Frequency of Treatment Frequency Of Treatment Twice a Day Treatment Plan Physical Therapy Treatment Plan Bed Mobility Training,Transfer Training,Gait Training, Therapeutic Exercise,Balance Retraining,Post Op Education, Discharge Planning,Hot or Cold Pack,Neuromuscular Re-ed, Coordination Retraining,Manual Therapy Other Recommendations and Next Treatment assess gait without AD or Focus least restrictive AD Recommendations To Nursing Amount of Assist Needed 1 Person Assist Discharge Recommendations PT Discharge Recommendations Home with Assistance, Outpatient PT Transportation Needs at Discharge Private Vehicle
[2019-08-05] MEDS: ONDANSETRON 4 MG/2 ML INJ IV (17:08)
--- NOTE | 2019-08-05 19:44 | PC.NURSE ---
Dressing change Dressing change done 08/05/2019 18:30. Incision site free of drainage. No swelling or bruising. Skin is pink from previous dressing irritation. No open skin tears seen. Coversite dressing placed. Patient tolerated well.
[2019-08-05] MEDS: SENNOSIDES 8.6 MG TABLET 17.2 MG PO (20:30)
[2019-08-05] MEDS: TRAZODONE 50 MG TABLET PO (20:31)
[2019-08-05] MEDS: GABAPENTIN 300 MG CAPSULE 900 MG PO (20:32)
--- NOTE | 2019-08-05 23:30 | PC.NURSE ---
pt did not much appetite tonight. pain 7/10 with movement, medicated with oxycodone and dilaudid. pt reports he was able to fall asleep after pain meds. 1pa to the BR. dressing was changed by student RN around 1800 w/coversite. call light in reach. bed alarm active.
[2019-08-06] VITALS (8 sets, daily range): BP systolic 94–115; BP diastolic 60–71; PULSE 65–94; RESP 16–18; TEMP 36.3–37.5; O2SAT 91–97
[2019-08-06] MEDS: hydrOXYzine pamoate 25 MG CAPSULE PO (01:35)
[2019-08-06] MEDS: HYDROMORPHONE 0.5 MG INJ IV (01:35)
[2019-08-06] MEDS: OXYCODONE IR 10 MG TABLET PO (03:36)
[2019-08-06] MEDS: PANTOPRAZOLE 20 MG TABLET PO (05:50)
--- NOTE | 2019-08-06 06:08 | PC.NURSE ---
Patient still having quite a bit of pain this shift at times c/o pain 01/15. Medicated w/ 10mg Oxycodone Q3, patient is also having PRN IV dilaudid 0.5mg. VSS. Lung sounds clear. Coversite Dressing on back is clean/dry/intact. Patient denies nausea. IS has been encouraged, SCD's applied, bed is low and locked and bed alarm is on, call light is within reach.
[2019-08-06] MEDS: HYDROMORPHONE 2 MG TABLET PO ×5 (08:37→21:41)
[2019-08-06] MEDS: TAMSULOSIN 0.4 MG CAPSULE PO (08:37)
[2019-08-06] MEDS: GABAPENTIN 300 MG CAPSULE PO (08:38)
[2019-08-06] MEDS: DOCUSATE 100 MG CAPSULE PO ×2 (08:38→21:42)
[2019-08-06] MEDS: ACETAMINOPHEN 325 MG TABLET 650 MG PO ×3 (08:38→21:43)
[2019-08-06] MEDS: ATENOLOL 50 MG TABLET PO (08:41)
--- NOTE | 2019-08-06 12:39 | OT.IPNOTE ---
Pt states having right thigh pain and just wanting to rest at this time. Pt states not leaving today and wanting to try to shower tomorrow.
--- NOTE | 2019-08-06 15:32 | PC.NURSE ---
Patient's pain better managed today on po dilaudid as ordered. Moving all extremities, denies numbness or weakness. Covesite intact to back. Urinal within reach. Call light within reach.
--- NOTE | 2019-08-06 15:40 | PT.IPTN ---
Current Diagnoses Other spondylosis with radiculopathy, lumbosacral region (08/04/19) Spinal stenosis, lumbar region without neurogenic claudication (08/04/19) Arthrodesis status (08/04/19) Surgery Performed Operation Date: 08/04/19 07:45 Actual Procedures p L2-3 TLIF, L3S1 HWR and re-insertion, L2-S1 PSF w/ instrumentation, L4-5 revision laminectomy - Zeny Gorman MD Physical Therapy Treatment Note M2 PT-IP Current Condition Start: 08/04/19 13:46 Freq: NEEDED Status: Active Protocol: Document 08/04/19 16:46 AW (Rec: 08/04/19 17:11 AW [email or web address]) Physical Therapy Current Condition Current Condition Evaluation Date 08/04/19 Treatment Diagnosis L2-S1 TLIF, impaired mobility Onset Date 08/04/19 Precautions Lumbar Precautions Log Roll,No Twisting,Limit Bending,Lifting Restriction of 10 lbs,Gait Belt above Incisional Area Brace Pt uses a dynamic AFO for DF assist on LLE Weight Bearing Status Weight Bearing Status Full Weight Bearing M3 PT-IP Subjective Start: 08/04/19 13:46 Freq: NEEDED Status: Active Protocol: Document 08/06/19 15:40 LJ (Rec: 08/06/19 15:40 LJ [id number]) Subjective Physical Therapy Visit Type Type Patient Refusal M4 PT-IP Mobility and Gait Start: 08/04/19 13:46 Freq: NEEDED Status: Active Protocol: Document 08/05/19 13:35 SP (Rec: 08/05/19 14:47 SP [email or web address]) PT-Bed Mobility Assessment Supine to Sit Supine to Sit Standby Assistance,Head of Bed Elevated,Bedrails Scooting Scooting to Edge of Bed Independent PT-Transfer Assessment Sit to and From Stand Sit to and from Stand Standby Assistance,Use of Upper Extremities Equipment Transfer Assistive Device Gait Belt,Straight Cane Orthotic/Prosthetic Devices or Brace: No Transfers Transfer Technique Pt ambulated with SPC Transfer Ability Level of Assist Standby Assistance,Use of Upper Extremities Comments Mobility Comments Pt was laying in bed when arrived wanting to get up and go for a walk. Pt complete elevated (50deg) supine to sitting to sit EOB SBA using bed rail support with good spinal precautions. Pt able to sit EOB without UE support. Sit to stand from EOB using SPC SBA and maintaining good spinal alignment. Pt was sitting in chair (after walk and dynamic sitting/standing activities) when left with 4 pillow support vertically and cold pack to LS for assist pain control with alarm donned and call light/ needs within reach. Gait Assessment Gait Gait Assistance Required: Standby Assistance Distance (Feet) 666 Able to Maintain Weight Bearing Status Yes During Gait Assistive Devices Assistive Device None,Gait Belt,Straight Cane Orthotic/Prosthetic Devices or Brace: No Gait Deviations General Gait Pattern Antalgic Factors Limiting Gait Function Factors Limiting Gait Function Decreased Strength,Pain,Poor Balance Comments Gait Comments Pt ambulated initially consistantly with SPC RUE and patterning with LLE step over step patterning BLE, patient progressed to intermittent SPC contact as distance progressed, noted occasional R lateral increased wt shift stance time over RLE but corrected with SPC contact with not much WB into it. Required SBA for safety. Recommended continue use of SPC for safety with balance, verbal agreement. Stair Climbing Assessment Comments Stair Climbing Comments Not performed this session. PT-Balance Assessment Sitting Balance and Reactions Static Sitting Balance Ability Normal Dynamic Sitting Balance Ability Good Standing Balance and Reactions Static Standing Balance Ability Good Dynamic Standing Balance Ability Fair Device Used SPC Comments Other Balance Tests/Deviations/Treatment NBOS feet together with no AD : head turns, vertical and EO fine, EC sways self recovery but no LOB 10 sec, attempted tandem without able to maintain foot position, stagger stance needed SPC to get into position and unable to maintain with out UE support so stopped. M5 PT-IP Objective Assessments Start: 08/04/19 13:46 Freq: NEEDED Status: Active Protocol: Document 08/04/19 16:46 AW (Rec: 08/04/19 17:11 AW [id number]) Orientation Orientation/Cognition Level of Alertness Alert Orientation Name,Day of Week,Place, Situation Language Function Ability No Deficits Noted Safety Awareness Understands Safety Issues Memory Description No Deficits Noted Gross Range of Motion Upper Extremity ROM Assessment Within Functional Limits Lower Extremity ROM Assessment Within Functional Limits Strength Upper Extremity Strength Assessment Within Functional Limits Lower Extremity Strength Assessment Bilaterally Impaired Hip 4/5 Knee 5/5 Ankle 4/5 Coordination Assessment Gross Coordination Gross Coordination WNL Sensation Assessment Sensation Gross Sensation Right LE Impaired,Left LE Impaired Light Touch Impaired Sensation Description Numbness Comments Sensation Comments Pt endorses peripheral neuropathy affective bilateral feet since before chemotherapy but definitely aggravated by same. Neuropathy affects sensation of bilateral feet and likely contributes to left foot drop for which he often wears a dynamic AFO with DF assist. Muscle Tone Muscle Tone WNL Yes M6 PT-IP Treatment Start: 08/04/19 13:46 Freq: NEEDED Status: Active Protocol: Document 08/05/19 13:35 SP (Rec: 08/05/19 14:47 SP [email or web address]) Physical Therapy Treatment Education Education Provided Precautions,Safety Other Treatments Other Treatment Performed standing march with and without SPC, seated EOB HRTR challenging noted trunk F/B sway to complete, mini march tolerable ROM no UE support needed. M7 PT-IP Assessment and Plan Start: 08/04/19 13:46 Freq: NEEDED Status: Active Protocol: Document 08/05/19 13:35 SP (Rec: 08/05/19 14:47 SP [email or web address]) PT Summary Assessment and Plan Potential Rehabilitation Potential Excellent Status of Condition at Evaluation Evolving Summary Impairments Pain,ROM,Strength,Sensation, Bed Mobility,Transfers,Gait, Activity Tolerance Assessment Summary See mobility, ther ex and dynamic balance activities performed. Bed mobility, sit to stand, gait SBA using SPC. Recommended walking with nursing assistants again later today to keep up strength. Pt would benefit one more day skilled PT to work on strength , endurance and complete caregiver training including stair mgt with prior to DC. arrived end of tx this afternoon. [employer] recommends discharge to home with spouse assist when medically cleared. He would also benefit from outpatient PT to optimize return to prior level of function. Goals Bed Mobility Goal Independent Transfer Goal Independent Gait Goal Independent Gait Distance 300 Other Goals Caregiver training including- up/down 7 steps with right rail ascending SBA - up/down 3 steps with left rail ascending SBA -gait FWW/SPC Days to Meet Goals 2 Frequency of Treatment Frequency Of Treatment Twice a Day Treatment Plan Physical Therapy Treatment Plan Bed Mobility Training,Transfer Training,Gait Training, Therapeutic Exercise,Balance Retraining,Post Op Education, Discharge Planning,Hot or Cold Pack,Neuromuscular Re-ed, Coordination Retraining,Manual Therapy Other Recommendations and Next Treatment assess gait without AD or Focus least restrictive AD Recommendations To Nursing Amount of Assist Needed 1 Person Assist Discharge Recommendations PT Discharge Recommendations Home with Assistance, Outpatient PT Transportation Needs at Discharge Private Vehicle
--- NOTE | 2019-08-06 17:11 | PM.PNPO.1 ---
Subjective Subjective Date Patient Seen: 08/06/19 Time Patient Seen: 07:20 Interval history: Patient is POD#2 s/p L2-3, L3-4, L4-5 [address]WR and [address]IF with Dr[address] Gorman. Pain has been marginally controlled. Pain is in lower back and today began having pain in anterior right thigh. Pain is controlled with tylenol, IV dilaudid, oxycodone 10mg, vistaril, gabapentin. Voiding without difficulty. Mobilizing slowly with PT secondary to pain. Denies fever, chills, chest pain, shortness of breath, numbness, tingling, urinary/bowel incontinence. Exam Vital Signs (past 8 hours): - 08/06/19 13:00 08/06/19 15:45 Temperature 98.7 F 98.1 F Pulse Rate 80 72 Respiratory Rate 16 18 Blood Pressure 109/70 109/61 Pulse Oximetry 93 96 Oxygen Delivery Method Room Air Oxygen Flow Rate 0 Narrative Exam Narrative: 68 year old male is laying comfortably in bed, in no apparent distress. A&Ox3. Dressing is intact with minimal shadow drainage bilaterally. SCDs in place. Able to actively dorsiflex/plantar flex BL. Sensory function grossly intact to light touch in LE BL. Dorsalis pedis 2+ BL. Calves warm, soft, compressible, non tender to palpation. Objective Labs Result Diagrams: 08/05/19 05:37 Assessment & Plan Post-op Postoperative Procedures: Procedures Operation Date: 08/04/19 07:45 Actual Procedures Side Surgeon p L2-3 TLIF, L3S1 HWR and re-insertion, L2-S1 PSF w/ instrumentation, L4-5 revision laminectomy Zeny Gorman MD Postoperative status: doing well and marginal pain control Postoperative plan narrative: Changing pain management - PO dilaudid 2mg Q3HR and PO dilaudid 4mg Q4HR If no improvement, will consider decadron Continue SCDs Mobilize with PT Most likely will discharge home in next 24 hours Time Spent With Patient Time with patient: less than 15 minutes Quality VTE Deep Vein Thrombosis/Pulmonary Embolism Present on Admission: No
[2019-08-06] MEDS: PROCHLORPERAZINE 5 MG TABLET PO (18:50)
[2019-08-06] MEDS: SENNOSIDES 8.6 MG TABLET 17.2 MG PO (21:42)
[2019-08-06] MEDS: TRAZODONE 50 MG TABLET PO (21:42)
[2019-08-06] MEDS: GABAPENTIN 300 MG CAPSULE 900 MG PO (21:43)
[2019-08-07] MEDS: HYDROMORPHONE 2 MG TABLET PO ×4 (00:40→11:37)
[2019-08-07] MEDS: PANTOPRAZOLE 20 MG TABLET PO (05:36)
[2019-08-07 05:42] VITALS: BP 110/68; PULSE 64
[2019-08-07] MEDS: PROCHLORPERAZINE 5 MG TABLET PO (05:42)
[2019-08-07 06:28] VITALS: BP 110/69; PULSE 62; RESP 16; TEMP 36.1; O2SAT 98
[2019-08-07 08:00] VITALS: BP 115/78; PULSE 78; RESP 16; TEMP 36.6; O2SAT 95
[2019-08-07] MEDS: MAGNESIUM HYDROXIDE 30 ML UDC PO (08:18)
[2019-08-07] MEDS: TAMSULOSIN 0.4 MG CAPSULE PO (08:18)
[2019-08-07] MEDS: GABAPENTIN 300 MG CAPSULE PO (08:18)
[2019-08-07] MEDS: DOCUSATE 100 MG CAPSULE PO (08:18)
[2019-08-07] MEDS: ATENOLOL 50 MG TABLET PO (08:18)
--- NOTE | 2019-08-07 08:45 | OT.IP.TRT ---
Current Diagnoses Other spondylosis with radiculopathy, lumbosacral region (08/04/19) Spinal stenosis, lumbar region without neurogenic claudication (08/04/19) Arthrodesis status (08/04/19) Surgery Performed Operation Date: 08/04/19 07:45 Actual Procedures p L2-3 TLIF, L3S1 HWR and re-insertion, L2-S1 PSF w/ instrumentation, L4-5 revision laminectomy - Zeny Gorman MD Occupational Therapy Treatment Note M3 OT- IP Subjective and Pain Start: 08/05/19 12:28 Freq: Status: Active Protocol: Document 08/07/19 08:45 PJM (Rec: 08/07/19 12:01 PJM [email or web address]) OT- Subjective Occupational Therapy Visit Type Type Administrative Note Visit Start Time 08:45 Notes OT recheck: Pt declines to shower here. He states that he and his are very familiar with lumbar spine precautions and adapted ADL techniques as this is his fourth back surgery. He has appropriate bathroom safety equipment and a long bath sponge. Pt plans to d/c home today with 24 hr assist from supportive . No further OT services needed. No charge.
--- NOTE | 2019-08-07 11:17 | PT.IPTN ---
Current Diagnoses Other spondylosis with radiculopathy, lumbosacral region (08/04/19) Spinal stenosis, lumbar region without neurogenic claudication (08/04/19) Arthrodesis status (08/04/19) Surgery Performed Operation Date: 08/04/19 07:45 Actual Procedures p L2-3 TLIF, L3S1 HWR and re-insertion, L2-S1 PSF w/ instrumentation, L4-5 revision laminectomy - Zeny Gorman MD Physical Therapy Treatment Note M2 PT-IP Current Condition Start: 08/04/19 13:46 Freq: NEEDED Status: Discharge Protocol: Document 08/04/19 16:46 AW (Rec: 08/04/19 17:11 AW [id number]) Physical Therapy Current Condition Current Condition Evaluation Date 08/04/19 Treatment Diagnosis L2-S1 TLIF, impaired mobility Onset Date 08/04/19 Precautions Lumbar Precautions Log Roll,No Twisting,Limit Bending,Lifting Restriction of 10 lbs,Gait Belt above Incisional Area Brace Pt uses a dynamic AFO for DF assist on LLE Weight Bearing Status Weight Bearing Status Full Weight Bearing M3 PT-IP Subjective Start: 08/04/19 13:46 Freq: NEEDED Status: Discharge Protocol: Document 08/07/19 11:00 SP (Rec: 08/07/19 12:55 SP [email or web address]) Subjective Physical Therapy Visit Type Type Treatment Note Visit Start Time 11:00 Visit Stop Time 11:17 Total Visit Minutes 17 Notes Caregiver training completed with including log roll, bed mob, transfer, gait, stairs using SPC. Physical Therapy Visit Comments Patient Comments Pt was willing to work with PT , caregiver training with . Patient Goals Go home with today. Therapy Pain Assessment Pain When Pain Assessed At Rest Pain Present Pain Present Pain Reported Location Back Intensity 6 Scale Used 6/10 B anterior thighs 3-4/10 LBP at rest, same with mobility Pain Management Techniques Re-positioning,Timing of Activity with Medications M4 PT-IP Mobility and Gait Start: 08/04/19 13:46 Freq: NEEDED Status: Discharge Protocol: Document 08/07/19 11:00 SP (Rec: 08/07/19 12:55 SP [email or web address]) PT-Bed Mobility Assessment Rolling Type of Rolling Log Rolling,Roll to Right Level of Assist Standby Assistance Supine to Sit Supine to Sit Standby Assistance Scooting Scooting to Edge of Bed Independent PT-Transfer Assessment Sit to and From Stand Sit to and from Stand Standby Assistance,Use of Upper Extremities Equipment Transfer Assistive Device Gait Belt,Straight Cane Transfers Transfer Destination Chair Transfer Technique Pt ambulated with SPC Transfer Ability Level of Assist Standby Assistance,Use of Upper Extremities Comments Mobility Comments Pt was laying upright in bed when arrived, present and provided SBA during log roll and supine to sitting, good spinal precautions demontrated and recalled /. Pt scooted forward EOB independently, sit to stand from EOB and pivoted to chair using SPC SBA provided by his , good stabililty and spinal alignment. Pt returned to the chair after a walk and stair mgt. Pt had all needs and call light within reach when left, his present in room and assisting him with dressing preparing for DC. Gait Assessment Gait Gait Assistance Required: Standby Assistance Distance (Feet) 212 Able to Maintain Weight Bearing Status Yes During Gait Assistive Devices Assistive Device Gait Belt,Straight Cane Orthotic/Prosthetic Devices or Brace: No Gait Deviations General Gait Pattern Antalgic Factors Limiting Gait Function Factors Limiting Gait Function Decreased Strength,Pain,Poor Balance Comments Gait Comments Pt ambulated from chair to stairs and back approx 212 ft with close SBA provided by his with noted antalgic lateral lean to R and heavy WB of RUE on SPC, post cuing and about 80 ft improved upright posture and minimal WB on SPC. Good slow pacing, noted stable balance head turn to answer someone's question during gait, no LOB or deviation. Stair Climbing Assessment Evaluation Level of Assist On Stairs Standby Assistance Devices Stair Climbing Assistive Devices Straight Cane,Left Railing, Right Railing Technique/Endurance Stair Climbing Direction Ascend and Descend Stair Climbing Technique Step Over Step Number of Steps Climbed 3 Stair Climbing Set # Repetitions (reps) 4 Comments Stair Climbing Comments Pt was able to ascend/descend 3 stairs x2 sets using L HR and SPC in RUE, then 2 sets R HR SPC in LUE to assimulate home enterance and inside home stair mgt, his provided SBA and cued for slow pacing, SPC positioning stair ahead ascending then trunk upright with SPC on same step descending. PT-Balance Assessment Sitting Balance and Reactions Static Sitting Balance Ability Normal Dynamic Sitting Balance Ability Good Standing Balance and Reactions Static Standing Balance Ability Good Dynamic Standing Balance Ability Fair Device Used SPC M5 PT-IP Objective Assessments Start: 08/04/19 13:46 Freq: NEEDED Status: Discharge Protocol: Document 08/04/19 16:46 AW (Rec: 08/04/19 17:11 AW [id number]) Orientation Orientation/Cognition Level of Alertness Alert Orientation Name,Day of Week,Place, Situation Language Function Ability No Deficits Noted Safety Awareness Understands Safety Issues Memory Description No Deficits Noted Gross Range of Motion Upper Extremity ROM Assessment Within Functional Limits Lower Extremity ROM Assessment Within Functional Limits Strength Upper Extremity Strength Assessment Within Functional Limits Lower Extremity Strength Assessment Bilaterally Impaired Hip 4/5 Knee 5/5 Ankle 4/5 Coordination Assessment Gross Coordination Gross Coordination WNL Sensation Assessment Sensation Gross Sensation Right LE Impaired,Left LE Impaired Light Touch Impaired Sensation Description Numbness Comments Sensation Comments Pt endorses peripheral neuropathy affective bilateral feet since before chemotherapy but definitely aggravated by same. Neuropathy affects sensation of bilateral feet and likely contributes to left foot drop for which he often wears a dynamic AFO with DF assist. Muscle Tone Muscle Tone WNL Yes M6 PT-IP Treatment Start: 08/04/19 13:46 Freq: NEEDED Status: Discharge Protocol: Document 08/07/19 11:00 SP (Rec: 08/07/19 12:55 SP [email or web address]) Physical Therapy Treatment Education Education Provided Precautions,Safety M7 PT-IP Assessment and Plan Start: 08/04/19 13:46 Freq: NEEDED Status: Discharge Protocol: Document 08/07/19 11:00 SP (Rec: 08/07/19 12:55 SP [email or web address]) PT Summary Assessment and Plan Potential Rehabilitation Potential Excellent Status of Condition at Evaluation Evolving Summary Impairments Pain,ROM,Strength,Sensation, Bed Mobility,Transfers,Gait, Activity Tolerance Assessment Summary See mobility. Bed mobility, sit to stand, gait and stair mgt SBA using SPC working with his to complete safe caregiver [employer]EL[employer] recommends discharge to home with spouse assist when medically cleared. PT recommending outpatient PT to optimize strength, balance to work toward return to prior level of function. Goals Bed Mobility Goal Independent Transfer Goal Independent Gait Goal Independent Gait Distance 300 Other Goals Caregiver training including- up/down 7 steps with right rail ascending SBA - up/down 3 steps with left rail ascending SBA -gait FWW/SPC- completed Days to Meet Goals 2 Frequency of Treatment Frequency Of Treatment Twice a Day Treatment Plan Physical Therapy Treatment Plan Bed Mobility Training,Transfer Training,Gait Training, Therapeutic Exercise,Balance Retraining,Post Op Education, Discharge Planning,Hot or Cold Pack,Neuromuscular Re-ed, Coordination Retraining,Manual Therapy Other Recommendations and Next Treatment assess gait without AD or Focus least restrictive AD- SPC 08/07 Recommendations To Nursing Amount of Assist Needed 1 Person Assist Discharge Recommendations PT Discharge Recommendations Home with Assistance, Outpatient PT Transportation Needs at Discharge Private Vehicle
--- NOTE | 2019-08-07 11:53 | PC.NURSE ---
went over dc meds and instructions with patient and patients spouse. Questions answered. Patient taken via wc to vehicle driven by spouse. Patient had all belongings.
--- NOTE | 2019-08-07 12:22 | PM.DS.1 ---
History of Present Illness History of Present Illness Date Patient Seen: 08/07/19 Time Patient Seen: 07:00 Chief complaint: [id number] Narrative: Patient has been having chronic back pain and worsening lumbar radiculopathy. Patient had prior lumbar fusion surgery with worsening back pain and CT showing loosening hardware and possible pseudoarthrosis. Patient failed multiple conservative management with worsening pain weakness and numbness in her lower extremity. Patient has been having difficulty performing activity of daily living. After discussing risks benefits of treatment options, patient elected proceed with surgery. Patient is POD#3 s/p L2-3, L3-4, L4-5 HWR and TLIF with Dr[address] Gorman. Pain is now controlled and improved compared to yesterday. Pain is in lower back and anterior right thigh. Thigh pain comes on with weight bearing and goes away at rest. Pain is controlled with tylenol, dilaudid 2mg PO, vistaril, gabapentin. Voiding without difficulty. Improved mobility with PT; PT recommends discharge home. Denies fever, chills, chest pain, shortness of breath, numbness, tingling, urinary/bowel incontinence. Discharge Providers Provider Date of admission: 08/04/19 06:14 Discharge Date: 08/07/19 Primary care physician: Justyna Alexandra MD Consults: 08/04/19 07:21 Consult to Respiratory Therapy Evaluate & Treat Comment: Physician Instructions: Evaluate and treat 08/04/19 13:16 Consult to Occupational Therapy Evaluate & Treat Comment: Physician Instructions: Evaluate and treat Consult to Physical Therapy Evaluate & Treat Comment: Physician Instructions: Evaluate and Treat Discharge provider: Hussein Whitten PA-C Summary Hospital Course Discharge Diagnosis: s/p L2-3, L3-4, L4-5 HWR and TLIF hypertension hx of migraines irregular heart beat kidney stones melanoma in situ (cheek) numbness (feet) pre-diabetes prostate cancer Hospital Course: Patient admitted to hospital s/p L2-3, L3-4, L4-5 HWR and TLIF with Dr[address] Gorman. POD #3 patient was ready for discharge home. Hospital course was notable for marginal pain control. Pain control was achieved tylenol, dilaudid 2mg PO, vistaril, gabapentin. Voiding and eating without difficulty or assistance prior to discharge. Mobilizing with PT prior to discharge. Discharge home with prescription for dilaudid 2mg and vistaril. Status at Discharge Cognitive/behavioral status at discharge: oriented Functional status at discharge: uses cane/walker Overall status at discharge: patient is progressing back to baseline Time Spent with Patient Time spent: Less than 30 minutes Exam Vital Signs (past 8 hours): - 08/07/19 05:42 08/07/19 06:28 08/07/19 08:00 Temperature 97.0 F L 97.8 F Pulse Rate 64 62 78 Respiratory Rate 16 16 Blood Pressure 110/68 110/69 115/78 Pulse Oximetry 98 95 Oxygen Delivery Method Room Air Oxygen Flow Rate 0 Narrative Exam Narrative: 68 year old male is laying comfortably in bed, in no apparent distress. A&Ox3. Dressing CDI. SCDs in place. Able to actively dorsiflex/plantar flex BL. Sensory function grossly intact to light touch in LE BL. Dorsalis pedis 2+ BL. Calves warm, soft, compressible, non tender to palpation. Objective Labs Result Diagrams: 08/05/19 05:37 Discharge Plan Discharge Plan Patient Disposition: Home Discharge orders & Medications Prescriptions: New hydromorphone [Dilaudid] 2 mg tablet 2 mg PO Q4-6H PRN (Reason: pain (scale score 7-10)) Qty: 60 RF: 0 Continued trazodone 50 mg Tablet 50 mg PO BEDTIME RF: 0 diphenhydramine HCl [Benadryl Allergy] 25 mg Tablet 50 mg PO BEDTIME RF: 0 gabapentin 300 mg Capsule 900 mg PO BEDTIME RF: 0 acetaminophen 500 mg Capsule 500 mg PO BID PRN (Reason: Pain) RF: 0 atenolol 50 mg Tablet 50 mg PO QAM RF: 0 gabapentin 300 mg Capsule 300 mg PO DAILY RF: 0 prochlorperazine maleate [Compazine] 5 mg Tablet 5 mg PO TID PRN (Reason: Nausea r/t chemo) RF: 0 alendronate 70 mg Tablet 70 mg PO QWEEK RF: 0 tamsulosin 0.4 mg Capsule 0.4 mg PO DAILY RF: 0 omeprazole 20 mg Capsule,Delayed Release(Dr/Ec) 20 mg PO DAILY RF: 0 Discontinued oxycodone 5 mg capsule 5 mg PO Q4-6H PRN (Reason: pain) Qty: 90 RF: 0 ibuprofen 200 mg Tablet 400 mg PO Q6H PRN (Reason: Pain) RF: 0 Follow up/Referrals: Justyna Alexandra MD [Primary Care Provider] - Zeny Gorman MD [Physician] - Diet/Activity/Treatments Diet: Regular Activity: no excessive bending, lifting, twisting Cold/Heat Therapy: continue cold therapy as needed Skin/Wound/Dressing Care Report to your healthcare provider any signs of infection, such as:: chills, fever, increased pain, unusual drainage and unusual redness Dressing: keep dressing dry. contact office for dressing changes Visit Report/Discharge Packet Instructions: DI for Prescription Opioid Use, Hydromorphone, DI for Transforaminal Lumbar Interbody Fusion Stand Alone Forms: Surgery Discharge Visit Report Forms: Patient Portal/API, Stroke Signs & Symptoms Discharge Data Primary Care Provider: Justyna Alexandra Discharges patient from system. Discharge Date/Time: 08/07/19 11:54 Quality VTE Deep Vein Thrombosis/Pulmonary Embolism Present on Admission: No
== END 2019-08-07 11:54 | disposition home or self-care (01) | DRG 454 ==
PROVIDERS: Admitting Provider Orthopaedic Surgery Orthopaedic Surgery of the Spine; PCP Student in an Organized Health Care Education/Training Program; Visit Provider Orthopaedic Surgery Orthopaedic Surgery of the Spine
PROC: 0SG00AJ Fusion of Lumbar Vertebral Joint with Interbody Fusion Device, Posterior Approach, Anterior Column, Open Approach (ICD-10-PCS; principal; 2019-08-04 07:45)
DX: M48.062 Spinal stenosis, lumbar region with neurogenic claudication (principal); M96.0 Pseudarthrosis after fusion or arthrodesis; T84.038A Mechanical loosening of other internal prosthetic joint, initial encounter; C61 Malignant neoplasm of prostate; M10.9 Gout, unspecified; K21.9 Gastro-esophageal reflux disease without esophagitis; M43.16 Spondylolisthesis, lumbar region; Z87.891 Personal history of nicotine dependence
CPT/HCPCS: 36415; 72100; 76000; 85014; 85018; 97112; 97116; 97162; 97165; 99406; C1776; C9290; J0330; J1100; J1170; J2405; J2704